=== PATIENT | female | born 1955 | race Caucasian/White ===

== ENCOUNTER 2023-01-07 15:30 | Outpatient (RCR) | payer MEDICARE, SELFPAY ==
--- NOTE | 2022-12-12 17:17 | PTOPEVAL1 ---
Assessment and note entered by Isabelle King, PT Evaluation Information Assessment Status Evaluation Diagnosis low back pain unspec., oth s/s involving musculoskeletal system Subjective Information Reports left buttock cheek is the pain. Was provided steroids, steroid, and had x-rays. Radiologist thinks L5-S1 slipped disc might be cause of pain. Fell on 11/16/22, was trying to push a wave runner off a port and stepped into hole. Pain improved from steroid shot, the next day with the pack was back but from that point on has gotten better every day. Works out 2x weekly with exercise classes, does a circuit and does exercises as directed. Uses body weight, some weights but not heavy weight. Did this because felt like she was loosing her balance and felt much stronger since started 9 months ago . Pain: C: 1/10 Best 0/10, worst in last two weeks 5 -6/10 Aggravating factors: pain with sitting on sore area, feels a ?pull like a stretch?. Worst is lifting left leg at night to pull off sock. Bending from the waist pulls and is a ?twinge?. Sitting in the car is the ?absolute worst?. In the beginning had pain down the leg but hasn?t had pain in the leg in more than a week. Reported Pain Level Pain Score 1: Self Report Assessment PT Clinical Summary Pt presents with complaints of left gluteal pain after fall early last month. States pain initially was very bad but has been getting progressively better. Pt has not been able to go work out and do her normal activities secondary to pain and for fear of increasing pain again. Today pt demo?s right iliac elevated in standing and left shoulder elevated, prominent sacral border with tenderness to piriformis insertion as well, mild deficits in gluteal medius strength, moderate strength deficits bilat glutes. Pt was educated on pelvic anatomy, therapy findings, prognosis, and provided initial home exercise program. Pt will benefit from physical therapy to continue progression of pain, improve deficits, and return to high level activities without pain Plan of Care Interventions
--- NOTE | 2022-12-12 17:17 | OPREHPOC ---
Outpatient Therapy Plan of Care This is a Multidisciplinary Plan of Care that may contain components documented by all disciplines (PT, OT, and ST.) PT Problem 1 PT Problem #1 Knowledge Deficit PT Goal 1 Goal Pt will verbalize understanding of diagnosis and prognosis Target Visit 8 PT Goal 2 Goal Pt will be independent in HEP Target Visit 8 PT Problem 2 PT Problem #2 Pain PT Goal 1 Goal Pt will report highest level of pain with exercise class at 2/10 Target Visit 4 PT Goal 2 Goal Pt will report resolution of pain with all activities Target Visit 8 PT Problem 3 PT Problem #3 Impaired Strength PT Goal 1 Goal Pt will demo 4/5 glute max strength bilat Target Visit 8 PT Goal 1 Goal Pt will demo equal pelvic alignment 3 sessions in a row Target Visit 8
--- NOTE | 2023-01-07 16:03 | PTOPDC ---
Assessment and note entered by Isabelle King, PT Assessment Status Discharge Diagnosis low back pain unspec., oth s/s involving msuculoskeletal system Subjective Information was horrible pain did the hardest workout had ever done and then came to therapy. Reports was definitely muscle soreness . Took tylenol, iced, and rested. Currently had a work out, one thing that irritates buttock more than anything is side stepping to left with large steps, reports is a muscle burn sensation. Subsides pretty quickly. Self percieved improvement: 98-99% improvement, if hadn't had the soreness would have rated 100%. No longer limited with sitting in the car. Has returned to fitness regiment without issue Reported Pain Level Pain Score 1: Self Report Assessment PT Clinical Summary Pt attended therapy consistently for her pain. She reports 98-99% improvement overall, has met her goals, met all accept one partially met therapist goal, and her highest pain level recently she reports was muscle soreness and not related to the pain that brought her to therapy. Pt has been educated on her final home exercise program and to contact therapist if she has any further needs. Thus patient is being discharged from therapy services due to completion of plan of care.
== END 2023-01-07 16:09 | disposition home or self-care (01) ==
LOC: ANHHIPT 15:30
PROVIDERS: PCP Physician Assistant Medical; Visit Provider Physician Assistant Medical
DX: M54.50 Low back pain, unspecified (principal); R29.898 Other symptoms and signs involving the musculoskeletal system
CPT/HCPCS: 97110; 97140; 97161

== ENCOUNTER 2023-05-16 10:03 | Outpatient (CLI) | payer MEDICARE, SELFPAY ==
--- NOTE | ~2023-05-16 | CT_ITS ---
CT of the Abdomen and Pelvis: Indication: Abdominal pain Technique: 2.5 mm axial scans were obtained through the abdomen and pelvis following intravenous adm inistration of 100 cc of Omnipaque 350. Dose reduction technique was used on this scan by utilizing a utomated exposure control and iterative reconstruction technique. The dose-length product (DLP) was 6 16.09 mGy-cm. Findings: Scans through the lung bases no straight 9 mm mildly irregular right middle lobe pulmonary nodule, new since 01/26/2018. The liver, spleen, pancreas, adrenals and kidneys are within normal limits. Cholecystectomy clips are present. There is mild fullness of the right ureter, nonspecific. No stones seen. There are atherosc lerotic calcifications of the aorta. No lymphadenopathy. No bowel obstruction or bowel wall thickening. There is no evidence to suggest acute appendicitis. Images through the pelvis were performed. Urinary bladder unremarkable. No pelvic mass seen. No ascit es. Impression: 9 mm right middle lobe pulmonary nodule, as detailed above, not seen on prior exam. According to Flei schner Society criteria, consider 3 month follow-up CT, PET/CT, or attempted tissue sampling. Minimal fullness of the right ureter, of uncertain clinical significance/etiology. Reviewed, dictated and finalized at location M. LTS ENGINEER Impression: 9 mm right middle lobe pulmonary nodule, as detailed above, not seen on prior e xam. According to Fleischner Society criteria, consider 3 month follow-up CT, P ET/CT, or attempted tissue sampling. Minimal fullness of the right ureter, of uncertain clinical significance/etiolo gy.
[2023-05-16 10:21] LABS: Estimated Glomerular Filt Rate > 60
== END 2023-05-16 10:04 | disposition home or self-care (01) ==
PROVIDERS: PCP Physician Assistant Medical; Visit Provider Nurse Practitioner
DX: R10.9 Unspecified abdominal pain (principal); R91.1 Solitary pulmonary nodule
CPT/HCPCS: 74177; Q9967

== ENCOUNTER 2023-07-11 12:42 | Outpatient (CLI) | payer MEDICARE, SELFPAY ==
--- NOTE | ~2023-07-11 | CT_ITS ---
Clinical Indication: Lung nodule CT Scan of the Chest with Contrast: Technique: Contiguous sections were acquired throughout the chest after intravenous administration of 35 cc of Omnipaque 350. Dose reduction technique was used on this scan by utilizing automated exposu re control and iterative reconstruction technique. The dose-length product (DLP) was 311.70 mGy-cm. COMPARISON: 05/16/2023, 01/26/2018 Findings: There is no evidence of any significant mediastinal, hilar or axillary lymphadenopathy. There is no f illing defect in the pulmonary arterial tree to suggest pulmonary embolus. There is no evidence of ao rtic dissection or aneurysm. There is no evidence of pleural or pericardial effusion. There is focal area somewhat tree-in-bud nodularity at the peripheral, inferior right upper lobe. Eulogio cified upper lobe granuloma. There is focal nodularity the right middle lobe, unchanged from prior ex am. Stable small pleural-based nodule at the right lower lobe. Images through the upper abdomen reveal no abnormalities. Impression: Subtle tree-in-bud nodularity focally at the peripheral inferior right upper lobe, suggestive of smal l areas infectious process. Stable nodularity right middle lobe, which could reflect chronic smokers infectious process and/or po stoperative scarring. Stable small pleural-based nodule right lower lobe. Reviewed, dictated and finalized at location M. ICAL OB Impression: Subtle tree-in-bud nodularity focally at the peripheral inferior right upper lo be, suggestive of small areas infectious process. Stable nodularity right middle lobe, which could reflect chronic smokers infect ious process and/or postoperative scarring. Stable small pleural-based nodule right lower lobe.
[2023-07-11 13:14] LABS: Estimated Glomerular Filt Rate 55
== END 2023-07-11 12:43 | disposition home or self-care (01) ==
PROVIDERS: PCP Physician Assistant Medical
DX: R91.1 Solitary pulmonary nodule (principal); R91.8 Other nonspecific abnormal finding of lung field
CPT/HCPCS: 71260; Q9967

== ENCOUNTER 2023-08-13 00:25 | Day surgery (SDC) | payer MEDICARE, SELFPAY ==
[2023-05-19 14:55] VITALS: BMI 29.9
--- NOTE | 2023-06-05 14:05 | PC.NURSE ---
Spoke with patient regarding rescheduled procedure. Updated patient with new dates and times. Patient denies any changes to health history, medications, or allergies. No questions at this time.
[2023-08-01 10:37] VITALS: BMI 29.9
--- NOTE | 2023-08-11 11:27 | SUR.PREOP ---
Patient called regarding upcoming procedure. Reviewed preop instructions, new appointment times, and procedure prep.
--- NOTE | 2023-08-12 14:31 | PM.HPGS ---
History of Present Illness History of Present Illness Consent: Risks, benefits, and alternatives have been discussed and questions answered. Patient agrees to proceed with procedure. Chief complaint: neoplasm screening,epigastric pain, Dorsalgia,GERD Narrative: Lilia Roa is a 68 year old female Who is undergoing investigation of epigastric pressure that she She had last January. Was very intense lasted a day or 2. Along with that she had pain in her upper back and neck. Ever since then, she has had pain in the back of her neck. She recently saw a neurosurgeon who suggested that she have endoscopy and or barium swallow. She denies dysphagia. She has not had any sensation of food going down the wrong throat. When this began last fall it was initially a very severe pain across her upper abdomen. She is also due for colon cancer screening. It has been at least 10 years since her last colonoscopy. Review of Systems Review of Systems: All systems reviewed & are unremarkable except as noted in HPI and below PMFSH Past Medical History Medical History Anxiety BMI 30.0-30.9,adult Claustrophobia Epigastric pressure GERD (gastroesophageal reflux disease) GERD without esophagitis Hypertension Hypothyroidism, unspecified IBS (irritable bowel syndrome) Mallet finger of right hand Mid back pain Nonrheumatic mitral (valve) prolapse Nonrheumatic mitral valve regurgitation GENESIS (obstructive sleep apnea) Osteoarthritis Screening for colon cancer Thyroid nodule Wears glasses Weight gain Surgical History Surgical History H/O partial thyroidectomy History of cholecystectomy Hx of hysterectomy S/P SALEEM-BSO Family History Family History Sibling Patient's sister is in good health Patient's brother is in good health Family history of sleep apnea Mother Family history of Parkinson's disease, Onset Age: 88 Father Malignant neoplasm of prostate Patient's father is , Onset Age: 83 MDS (myelodysplastic syndrome) Grandparent Family history of malignant neoplasm Other Diabetes mellitus Family history of arthritis Family history of blood dyscrasia Family history of coronary artery disease Family history of mental disorder Family history of type 1 diabetes mellitus Hypertension Social History Social History Smoking packs per day: 1 Smoking cigarettes per day: 20.0 Years smoked: 35 Smoking pack-years: 35.00 Smoking status: Former smoker Tobacco type: cigarettes Second hand tobacco smoke exposure: Yes Smoking end date: 06/30/02 Alcohol intake: never Substance use: never Substance use type: does not use Lack of Transportation: No Lack of Food: Never True Current Housing: I Have Housing Concerned About Future Housing: No Difficulty Paying Gas/Electric Bills: No Difficulty Paying for Meds: No Currently Unemployed: No Education: Associate Degree Difficulty w/ Childcare or Family Care: No Living arrangements: with family Occupation/Education: retired 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
[2023-08-13 11:40] VITALS: BP 130/86; PULSE 80; RESP 16; TEMP 36.3; O2SAT 100
[2023-08-13] MEDS: LACTATED RINGERS 1,000 ML 150 ML IV CONT (11:48)
--- NOTE | 2023-08-13 11:59 | WPDANESEPPF ---
Anes - Initial Pre Proc Eval Procedure: Operation Date: 08/13/23 12:30 Proposed Procedures p Esophagogastroduodenoscopy & Colonoscopy - Reynaldo Fox MD Date/Time: 08/13/23 11:59 Surgeon: Reynaldo Fox MD Pre Op Diagnosis: neoplasm screening,epigastric pain, Dorsalgia,GERD Patient Data Age: 68 Gender: F Height: 1.63 m Weight: 77.7 kg Last Vital Signs Temp 97.4 F L 08/13/23 11:40 Pulse 80 08/13/23 11:40 Resp 16 08/13/23 11:40 BP 130/86 08/13/23 11:40 Pulse Ox 100 08/13/23 11:40 O2 Del Method Room Air 08/13/23 11:40 Allergies Allergy/AdvReac Type Severity Reaction Status Date / Time LA NENA Inhibitors Allergy Unknown Unknown Verified 08/13/23 11:37 Beta-Blockers Allergy Unknown Unknown Verified 08/13/23 11:37 (Beta-Adrenergic Bloc moxifloxacin Allergy Unknown Unknown Verified 08/13/23 11:37 Latex, Natural Rubber Allergy Swelling Verified 08/13/23 11:37 azithromycin AdvReac Unknown diarrhea Verified 08/13/23 11:37 [From Zithromax Z-Lyle] bactrim AdvReac Nausea Uncoded 08/13/23 11:37 Home Medications Medication Instructions Recorded Confirmed Type triamcinolone acetonide 0.1 % 1 applic topical BID #30 grams 02/13/21 08/13/23 Rx topical cream loperamide 2 mg tablet (Imodium 2 mg PO BID PRN Diarrhea 07/31/21 08/13/23 History A-D) buspirone 15 mg tablet See Rx Instructions .Route 02/21/23 08/13/23 Rx .COMPLEX #90 tabs liothyronine 5 mcg tablet See Rx Instructions .Route 03/31/23 08/13/23 Rx .COMPLEX #180 tabs dexlansoprazole 60 mg 60 mg PO DAILY #30 caps 05/07/23 08/13/23 Rx capsule,biphase delayed release (Dexilant) sucralfate 100 mg/mL oral 1 g (10 mL) PO ACHS #400 mL 05/07/23 08/13/23 Rx suspension (Carafate) rabeprazole 20 mg tablet,delayed See Rx Instructions .Route 06/24/23 08/13/23 Rx release .COMPLEX #180 tabs meloxicam 7.5 mg tablet See Rx Instructions .Route 07/07/23 08/13/23 Rx .COMPLEX #60 tabs clonidine HCl 0.1 mg tablet See Rx Instructions .Route 07/14/23 08/13/23 Rx .COMPLEX #270 tabs alprazolam 0.25 mg tablet (Xanax) 0.25 mg PO BID PRN anxiety #60 tabs 07/22/23 08/13/23 Rx levothyroxine 75 mcg tablet 75 mcg PO DAILY #90 tabs 07/23/23 08/13/23 Rx (Synthroid) Patient hx anesthesia problems: none Family hx anesthesia problems: none Results Review: All pre-operative results and documents have been reviewed as part of the pre-operative evaluation. [facility] Past Medical History Medical History Anxiety BMI 30.0-30.9,adult Claustrophobia Epigastric pressure GERD (gastroesophageal reflux disease) GERD without esophagitis Hypertension Hypothyroidism, unspecified IBS (irritable bowel syndrome) Mallet finger of right hand Mid back pain Nonrheumatic mitral (valve) prolapse Nonrheumatic mitral valve regurgitation GENESIS (obstructive sleep apnea) Osteoarthritis Screening for colon cancer Thyroid nodule Wears glasses Weight gain Surgical History Surgical History H/O partial thyroidectomy History of cholecystectomy Hx of hysterectomy S/P SALEEM-BSO Family History Family History Sibling Patient's sister is in good health Patient's brother is in good health Family history of sleep apnea Mother Family history of Parkinson's disease, Onset Age: 88 Father Malignant neoplasm of prostate Patient's father is , Onset Age: 83 MDS (myelodysplastic syndrome) Grandparent Family history of malignant neoplasm Other Diabetes mellitus Family history of arthritis Family history of blood dyscrasia Family history of coronary artery disease Family history of mental disorder Family history of type 1 diabetes mellitus Hypertension Social History Social History Smoking pa
[2023-08-13] MEDS: SIMETHICONE ORAL SUSPENSION 20 MG/0.3 ML 30 ML BOTTLE 0.6 ML IRRIGATION (12:53)
[2023-08-13 13:06] VITALS: BP 139/88; PULSE 73; RESP 16; O2SAT 100
--- NOTE | 2023-08-13 13:06 | SUR.OPER ---
EGD START 1239, END 1241 COLONOSCOPY START 1247, END 1303
[2023-08-13 13:16] VITALS: BP 146/89; PULSE 65; RESP 12; O2SAT 100
[2023-08-13 13:26] VITALS: BP 143/88; PULSE 62; RESP 12; O2SAT 100
== END 2023-08-13 13:36 | disposition home or self-care (01) ==
PROVIDERS: PCP Physician Assistant Medical; Visit Provider Internal Medicine Gastroenterology
PROC: 0DJ08ZZ Inspection of Upper Intestinal Tract, Via Natural or Artificial Opening Endoscopic (ICD-10-PCS; CPT 43235; principal; 2023-08-13 12:30)
DX: Z12.11 Encounter for screening for malignant neoplasm of colon (principal); D12.4 Benign neoplasm of descending colon; D12.3 Benign neoplasm of transverse colon; K21.9 Gastro-esophageal reflux disease without esophagitis; K31.7 Polyp of stomach and duodenum; I10 Essential (primary) hypertension; E89.0 Postprocedural hypothyroidism; G47.33 Obstructive sleep apnea (adult) (pediatric); F41.9 Anxiety disorder, unspecified; Z87.891 Personal history of nicotine dependence; E66.9 Obesity, unspecified; Z68.29 Body mass index [BMI] 29.0-29.9, adult
CPT/HCPCS: 45385; 43235; 88305; J2704; J7120

== ENCOUNTER 2023-09-09 16:50 | Inpatient (IN) | payer MEDICARE, SELFPAY ==
[2023-09-09] VITALS (17 sets, daily range): BP systolic 124–183; BP diastolic 68–110; PULSE 60–84; RESP 13–22; TEMP 36.2–36.7; O2SAT 98–100; BMI 29.5
--- NOTE | ~2023-09-09 | US_ITS ---
EXAMINATION: US venous doppler [facility] DATE: 09/11/2023 16:58 INDICATION: Acute pulmonary emboli. TECHNIQUE: Grayscale ultrasound images without and with compression and Doppler ultrasound images of the bilateral lower extremity veins were obtained. COMPARISON: None. FINDINGS: The visualized portions of right common femoral vein, profunda (deep) femoral vein, femoral vein, pop liteal vein, peroneal veins, posterior tibial veins, and greater saphenous vein outflow are patent. The visualized portions of left common femoral vein, profunda femoral vein, femoral vein, popliteal v ein, peroneal veins, posterior tibial veins, and greater saphenous vein outflow are patent. IMPRESSION: 1. No deep venous thrombosis. Reviewed, dictated and finalized at location A.
--- NOTE | ~2023-09-09 | CT_ITS ---
EXAMINATION: CTA chest PE protocol DATE: 09/09/2023 17:21 INDICATION: + dimer on OP labs yesterday TECHNIQUE: Computed tomography angiography (CTA) of the chest was performed with 100 mL Omnipaque-350 intravenous contrast timed to evaluate the pulmonary arteries. Coronal maximum intensity projection 3D-reconstructions were created by the technologist. The dose-length product (DLP) was 399.54 mGy-cm. Automated exposure control and iterative reconstruction technique were employed. COMPARISON: 07/11/2023. FINDINGS: Lung parenchyma and airways: Slightly increased focal areas of tree-in-bud opacities in the right upp er and right middle lobes. Stable pleural-based right lower lobe nodule. Patent airways. Pleura: Unremarkable. Thoracic inlet, axillae and chest wall: Unremarkable. Thoracic aorta: No significant dilation. No dissection. Mild arch calcification. Mediastinum: Normal. Heart and pericardium: No cardiomegaly or effusion. RV/LV ratio 1.1. Coronary artery calcifications: Absent. Upper abdomen: No significant finding. Bones: No acute osseous finding. Pulmonary arteries: Study quality: Adequate. Multiple segmental nonocclusive acute emboli in the ling jimi and bilateral lower lobes. IMPRESSION: Multiple segmental nonocclusive acute emboli in the lingula and bilateral lower lobes. Moderate clot burden. Evidence of right heart strain. Right upper lobe and right middle lobe tree-in-bud opacities as can be seen with atypical infection ( MAC, TB, fungal), ABPA, airways disease (CF, bronchiectasis), and aspiration.. Reviewed, dictated and finalized at location K. IMPRESSION: Multiple segmental nonocclusive acute emboli in the lingula and bilateral lower lobes. Moderate clot burden. Evidence of right heart strain. Right upper lobe and right middle lobe tree-in-bud opacities as can be seen wit h atypical infection (MAC, TB, fungal), ABPA, airways disease (CF, bronchiectas is), and aspiration..
--- NOTE | 2023-09-09 16:54 | ECG_ITS ---
Measurements Intervals [place] Rate: 60 P: 26 W[place]: 162 QRS: -21 QRSD: 89 T: 24 QT: 424 QTc: 424 Interpretive Statements SINUS RHYTHM VENTRICULAR PREMATURE COMPLEXES EARLY PRECORDIAL R/S TRANSITION BORDERLINE ECG NO PREVIOUS ECG AVAILABLE FOR COMPARISON Electronically Signed On 09-10-2023 10:04:23 CDT by Ulysses Sung D.O.
[2023-09-09 17:12] LABS: Estimated CRCL calculation 47 ml/min; Estimated Glomerular Filt Rate 55
--- NOTE | 2023-09-09 17:43 | ED.GENADULT ---
HPI - General Adult General Chief complaint: Recheck/Abnormal Lab/Rx <Uriah Briggs PA-C - Last Filed: 09/10/23 00:56> Stated complaint: abnormal labs <TEDDY Butler Last Filed: 09/10/23 00:56> Time Seen by Provider: 09/09/23 17:01 <Uriah Briggs PA-C - Last Filed: 09/10/23 00:56> Source: patient <TEDDY Butler Last Filed: 09/10/23 00:56> Mode of arrival: ambulatory <TEDDY Butler Last Filed: 09/10/23 00:56> Limitations: no limitations <TEDDY Butler Last Filed: 09/10/23 00:56> History of Present Illness HPI narrative: This is a 68-year-old female who presents to the ED with chief complaint of intermittent shortness of breath for the past several weeks. She reports that she will have episodes of dyspnea on exertion. Reports that she has had trouble with walking across the mid times the she tries to work out regularly but has been a to even walk slowly at the gym lately without getting short of breath. Denies chest pain. Denies syncope, diaphoresis, vomiting, leg swelling. Denies history of blood clot, recent travel or immobilization. She was seen at PCP office today who started in outpatient workup including D-dimer which was elevated to 1.94. She is here for a CTA of the chest. <Uriah Briggs PA-C - Last Filed: 09/10/23 00:56> Related Data Home medications: Home Medications Medication Instructions Recorded Confirmed loperamide 2 mg tablet (Imodium 2 mg PO BID PRN Diarrhea 07/31/21 09/09/23 A-D) buspirone 15 mg tablet 7.5 mg PO BID 09/08/23 09/09/23 clonidine HCl 0.1 mg tablet 0.05 mg PO TID 09/08/23 09/09/23 liothyronine 5 mcg tablet 5 mcg PO BID 09/08/23 09/09/23 meloxicam 7.5 mg tablet 7.5 mg PO BID PRN pain 09/08/23 09/09/23 rabeprazole 20 mg tablet,delayed 20 mg PO BID 09/08/23 09/09/23 release alprazolam 0.25 mg tablet (Xanax) 0.25 mg PO BID anxiety 09/09/23 09/09/23 cetirizine 10 mg tablet (Zyrtec) 10 mg PO DAILY 09/09/23 09/09/23 levothyroxine 75 mcg tablet 88 mcg PO DAILY 09/09/23 09/09/23 (Synthroid) <Uriah Briggs PA-C - Last Filed: 09/10/23 00:56> Allergies/adverse reactions: Allergies Allergy/AdvReac Type Severity Reaction Status Date / Time LA NENA Inhibitors Allergy Unknown Unknown Verified 09/09/23 16:52 Beta-Blockers Allergy Unknown Unknown Verified 09/09/23 16:52 (Beta-Adrenergic Bloc moxifloxacin Allergy Unknown Unknown Verified 09/09/23 16:52 Latex, Natural Rubber Allergy Swelling Verified 09/09/23 16:52 azithromycin AdvReac Unknown diarrhea Verified 09/09/23 16:52 [From Zithromax Z-Lyle] bactrim AdvReac Mild Nausea Uncoded 09/09/23 16:53 <Uriah Briggs PA-C - Last Filed: 09/10/23 00:56> Review of Systems Review of Systems: All systems as dictated in HPI <Uriah Briggs PA-C - Last Filed: 09/10/23 00:56> [facility] Past Medical History Medical History: Medical History Anxiety BMI 30.0-30.9,adult Claustrophobia Epigastric pressure GERD (gastroesophageal reflux disease) GERD without esophagitis Hypertension Hypothyroidism, unspecified IBS (irritable bowel syndrome) Mallet finger of right hand Mid back pain Nonrheumatic mitral (valve) prolapse Nonrheumatic mitral valve regurgitation GENESIS (obstructive sleep apnea) Osteoarthritis Screening for colon cancer Thyroid nodule Wears glasses Weight gain <Uriah Briggs PA-C - Last Filed: 09/10/23 00:56> Surgical History Surgical History: Surgical History H/O partial thyroidectomy History of cholecystectomy Hx of hysterectomy S/P SALEEM-BSO <Uriah Briggs PA-C - Last Filed: 09/10/23 00:56> Family History Family History: Family History Sibling Patient's sister is in good health Patient's brother is in good health Family history of sleep apnea Mother Fam
[2023-09-09] MEDS: HEPARIN SODIUM 5,000 UNITS/ML VIAL 5000 UNITS IV PUSH (18:00)
[2023-09-09] MEDS: HEPARIN SOD/D5W 100 UNITS/ML 25,000 UNITS/250 ML BAG 12 UNITS IV CONT (18:02)
[2023-09-09 18:06] LABS: NT Pro B Type Natriuretic Pept 86 pg/mL (19.9-100)
[2023-09-09 18:08] LABS: Basophils Percent Auto 0.5 % (0.2-1.2); Eosinophils Absolute Auto 0.2 K/mm3 (0-0.3); Hematocrit 37.6 % (37.0-47.0); Hemoglobin 12.3 g/dL (12.0-15.0); Immature Granulocyte Absolute 0.01 K/mm3 (0.00-0.031); Immature Granulocyte Percent A 0.2 % (0-0.5); Lymphocytes Absolute Auto 1.58 K/mm3 (0.9-3.2); Lymphocytes Percent Auto 27.1 % (18.3-44.2); Mean Corpuscular HGB Conc 32.7 g/dl (32-36); Mean Corpuscular Volume 94.7 fl (80-100); Mean Platelet Volume 12.2 fl (7.4-10.4); Monocytes Absolute Auto 0.8 K/mm3 (0.1-0.6); Monocytes Percent Auto 13.9 % (2.6-8.5); Neutrophils Absolute Auto 3.2 K/mm3 (1.3-6.7); Neutrophils Percent Auto 54.3 % (45.5-73.1); Platelet Count Result 281 k/mm3 (150-375); Red Blood Count 3.97 M/mm3 (4.2-5.4); Red Cell Distribution Width 12.3 % (11.5-14.5); White Blood Count 5.8 K/mm3 (4.5-10.0)
[2023-09-09 19:10] LABS: Partial Thromboplastin Time 28.8 Seconds (22.3-36.8)
[2023-09-09 19:26] LABS: Alanine Aminotransferase 16 U/L (6-35); Albumin Level 4.1 g/dL (3.5-5.1); Alkaline Phosphatase 76 U/L (38-126); Anion Gap 6 mmol/L (8-16); Aspartate Amino Transferase 24 U/L (14-36); Bilirubin,Total 0.5 mg/dL (0.2-1.3); Blood Urea Nitrogen 23 mg/dL (7-17); Calcium 9.2 mg/dL (8.4-10.2); Carbon Dioxide 26 mmol/L (22-30); Chloride 101 mmol/L (98-107); Estimated CRCL calculation 58 ml/min; Estimated Glomerular Filt Rate > 60; Glucose 93 mg/dL (65-110); Potassium 4.3 mmol/L (3.4-5.0); Sodium 133 mmol/L (137-145)
[2023-09-09 19:38] LABS: Troponin I < 0.012 ng/mL (0.000-0.034)
--- NOTE | 2023-09-09 20:58 | PM.IMHP ---
H&P: HPI History of Present Illness Date/Time: 09/09/23 20:58 Chief Complaint: Shortness of breath. This is a 68-year-old female patient with a past medical history of hypothyroidism GERD who came to the emergency room because of the abnormal labs. Patient is having shortness of breath for about 2 months of unknown. She went to see her primary care physician and dimer was ordered that was elevated she was sent to to get his CT angiogram chest. Patient is awake alert not in acute distress. Denies any fever chills dizziness lightheadedness no blurred vision complains of shortness of breath denies any cough denies any chest pain denies any nausea no vomiting no diarrhea no dysuria no muscle and joint pains. Vital signs in the emergency room was stable. Cbc was mainly in range. CMP was significant for sodium 133 BUN 23. Troponin was normal. CT of chest showed multiple cysts segmental nonocclusive acute emboli in the lingula and bilateral lower lobes. Moderate clot burden. Evidence of right heart strain. Patient started on IV heparin drip. Review of Systems Review of Systems: A 10 point review of system is done and is only positive what is dictated in the history of present illness. [facility] Past Medical History Medical History Anxiety BMI 30.0-30.9,adult Claustrophobia Epigastric pressure GERD (gastroesophageal reflux disease) GERD without esophagitis Hypertension Hypothyroidism, unspecified IBS (irritable bowel syndrome) Mallet finger of right hand Mid back pain Nonrheumatic mitral (valve) prolapse Nonrheumatic mitral valve regurgitation GENESIS (obstructive sleep apnea) Osteoarthritis Screening for colon cancer Thyroid nodule Wears glasses Weight gain Surgical History Surgical History H/O partial thyroidectomy History of cholecystectomy Hx of hysterectomy S/P SALEEM-BSO Family History Family History Sibling Patient's sister is in good health Patient's brother is in good health Family history of sleep apnea Mother Family history of Parkinson's disease, Onset Age: 88 Father Malignant neoplasm of prostate Patient's father is , Onset Age: 83 MDS (myelodysplastic syndrome) Grandparent Family history of malignant neoplasm Other Diabetes mellitus Family history of arthritis Family history of blood dyscrasia Family history of coronary artery disease Family history of mental disorder Family history of type 1 diabetes mellitus Hypertension Social History Social History Smoking packs per day: 1 Smoking cigarettes per day: 20.0 Years smoked: 35 Smoking pack-years: 35.00 Smoking status: Former smoker Tobacco type: cigarettes Second hand tobacco smoke exposure: Yes Smoking end date: 06/30/02 Alcohol intake: never Substance use: never Substance use type: does not use Lack of Transportation: No Lack of Food: Never True Current Housing: I Have Housing Concerned About Future Housing: No Difficulty Paying Gas/Electric Bills: No Difficulty Paying for Meds: No Currently Unemployed: No Education: Associate Degree Difficulty w/ Childcare or Family Care: No Living arrangements: with family Occupation/Education: retired 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
--- NOTE | 2023-09-09 21:43 | ADMGEN ---
This patient, Lilia Roa, was admitted to IMU Room 211-01. Patient/family oriented to hospital policies and general routines including ID bracelet, bed and alarms, visiting hours, pain management, procedures, bathroom and other care routines, personal items, smoking policy, room service/diet, and visiting hours. Information on how to activate the Rapid Response Team has been discussed. Patient/Family are encouraged to report perceived risks to care and to ask questions if they do not understand what they are told or what they should do.
[2023-09-09 22:19] LABS: Troponin I < 0.012 ng/mL (0.000-0.034)
[2023-09-09] MEDS: cloNIDine HCL 0.05 MG TABLET PO (22:38)
[2023-09-09] MEDS: busPIRone HCL 2.5 MG, busPIRone HCL 5 MG 7.5 MG PO (22:38)
[2023-09-09] MEDS: MELOXICAM 7.5 MG TABLET PO (22:42)
[2023-09-10] VITALS (17 sets, daily range): BP systolic 117–157; BP diastolic 74–90; PULSE 60–80; RESP 18–19; TEMP 36.1–36.9; O2SAT 95–98
--- NOTE | 2023-09-10 | ECHO_ITS ---
Patient Info Name: Lilia Roa Age: 68 years : 1955 Gender: Female Ht: 64 in Wt: 171 lbs BSA: 1.90 m2 HR: 68 bpm BP: 132 / 83 mmHg Heart Rhythm: Sinus Rhythm Technical Quality: Fair Exam Date: 09/10/2023 1:17 PM Exam Location: Echo Lab Exam Room: [facility] Patient Status: Inpatient Admit Date: 09/10/2023 Staff Ordering Physician: Kayode Adame MD Intermediate Frame Tender: Adriana Mcfarland RDCS Attending Provider: Kayode Adame MD Exam Type: CA echo doppler color flow Study Info Indications - RIGHT HAERT STRAIN ON CT STRAIN C/O SOB Complete two-dimensional, color flow and Doppler transthoracic echocardiogram is performed. Summary 1. Complete two-dimensional, color flow and Doppler transthoracic echocardiogram is performed. 2. Left ventricular chamber dimension is normal. 3. Left ventricular systolic function is normal, estimated at 65-70%. 4. There is mildly increased left ventricular wall thickness. 5. The left ventricular diastolic function is grade I diastolic dysfunction. 6. Right ventricular systolic function is normal. 7. There is mild aortic valve regurgitation. 8. There is moderate mitral valve regurgitation. 9. There is mild tricuspid valve regurgitation. Left Ventricle Left ventricular chamber dimension is normal. Left ventricular systolic function is normal, estimated at 65-70%. There is mildly increased left ventricular wall thickness. The left ventricular diastolic function is grade I diastolic dysfunction. Right Ventricle Right ventricular chamber dimension is normal. Right ventricular systolic function is normal. Left Atria Left atrial chamber dimension is normal. Right Atria Right atrial chamber dimension is normal. Atrial Septum Intact interatrial septum visualized by color flow imaging. Aortic Valve The aortic valve is trileaflet. There is no aortic valve stenosis. There is mild aortic valve regurgitation. Pulmonic Valve The pulmonic valve is not well visualized. There is trace pulmonic regurgitation. Mitral Valve There is moderate mitral valve regurgitation. Tricuspid Valve There is mild tricuspid valve regurgitation. Pericardium/Pleural There is no pericardial effusion. Inferior Vena Cava Normal inferior vena cava with >50% collapse upon inspiration consistent with normal right atrial pressure, 3 mmHg. Aorta The aortic root size at the sinus of Valsalva is normal. Left Ventricular Outflow Tract Name Value Normal LVOT 2D LVOT Diameter 2.0 cm LVOT Doppler LVOT Peak Gradient 4 mmHg LVOT Mean Gradient 2 mmHg LVOT VTI 20 cm LVOT VTI/AV VTI Ratio 0.9 LVOT Stroke Volume 63 ml LVOT CO 14.1 l/min LVOT CI 7.7 l/min/m2 Pulmonic Valve Name Value Normal RVOT Doppler RVOT Peak Gradient
[2023-09-10 01:00] LABS: Partial Thromboplastin Time 123.6 Seconds (22.3-36.8)
[2023-09-10 04:57] LABS: Basophils Percent Auto 0.8 % (0.2-1.2); Eosinophils Absolute Auto 0.2 K/mm3 (0-0.3); Eosinophils Percent Auto 2.9 % (0-4.4); Hematocrit 37.9 % (37.0-47.0); Hemoglobin 12.7 g/dL (12.0-15.0); Lymphocytes Absolute Auto 1.46 K/mm3 (0.9-3.2); Lymphocytes Percent Auto 28.1 % (18.3-44.2); Mean Corpuscular HGB Conc 33.5 g/dl (32-36); Mean Corpuscular Hemoglobin 31.1 pg (26-34); Mean Corpuscular Volume 92.9 fl (80-100); Mean Platelet Volume 11.6 fl (7.4-10.4); Monocytes Absolute Auto 0.7 K/mm3 (0.1-0.6); Monocytes Percent Auto 12.5 % (2.6-8.5); Neutrophils Absolute Auto 2.9 K/mm3 (1.3-6.7); Neutrophils Percent Auto 55.7 % (45.5-73.1); Platelet Count Result 250 k/mm3 (150-375); Red Blood Count 4.08 M/mm3 (4.2-5.4); Red Cell Distribution Width 12.3 % (11.5-14.5); White Blood Count 5.2 K/mm3 (4.5-10.0)
[2023-09-10] MEDS: LEVOTHYROXINE SODIUM 88 MCG TABLET PO (05:53)
[2023-09-10 08:49] LABS: Partial Thromboplastin Time 106.9 Seconds (22.3-36.8); Troponin I < 0.012 ng/mL (0.000-0.034)
[2023-09-10] MEDS: ALPRAZolam (*CRX) 0.25 MG TABLET PO ×2 (09:47→20:31)
[2023-09-10] MEDS: cloNIDine HCL 0.05 MG TABLET PO ×3 (09:47→20:26)
[2023-09-10] MEDS: PANTOPRAZOLE 40 MG TABLET PO (09:47)
[2023-09-10] MEDS: busPIRone HCL 2.5 MG TABLET 7.5 MG PO (09:47)
[2023-09-10] MEDS: LOPERAMIDE HCL 2 MG CAPSULE 4 MG PO (09:47)
[2023-09-10] MEDS: MELOXICAM 7.5 MG TABLET PO ×2 (09:47→20:31)
[2023-09-10 16:30] LABS: Partial Thromboplastin Time 112.7 Seconds (22.3-36.8)
[2023-09-10] MEDS: PANTOPRAZOLE SOD SESQUIHYDRATE 20 MG TAB PO (16:42)
[2023-09-10] MEDS: HEPARIN SOD/D5W 100 UNITS/ML 25,000 UNITS/250 ML BAG 9 UNITS IV CONT (16:43)
--- NOTE | 2023-09-10 17:33 | PM.IMPN ---
Progress Note: A&P Assessment and Plan (1) Multiple subsegmental pulmonary emboli without acute cor pulmonale: Code(s): I26.94 - Multiple subsegmental pulmonary emboli without acute cor pulmonale Status: Acute (2) Dyspnea on exertion: Onset Date: ~06/2023 Code(s): R06.09 - Other forms of dyspnea Status: Acute (3) Hypertension: Code(s): I10 - Essential (primary) hypertension Status: Acute (4) GENESIS (obstructive sleep apnea): Code(s): G47.33 - Obstructive sleep apnea (adult) (pediatric) Status: Acute (5) Anxiety: Code(s): F41.9 - Anxiety disorder, unspecified Status: Acute (6) Hypothyroidism, unspecified: Code(s): E03.9 - Hypothyroidism, unspecified Status: Acute (7) GERD without esophagitis: Code(s): K21.9 - Gastro-esophageal reflux disease without esophagitis Status: Acute (8) IBS (irritable bowel syndrome): Code(s): K58.9 - Irritable bowel syndrome without diarrhea Status: Acute (9) Osteoarthritis: Code(s): M19.90 - Unspecified osteoarthritis, unspecified site Status: Acute (10) Varicose veins of left lower extremity with other complications: Code(s): I83.892 - Varicose veins of left lower extremity with other complications Status: Acute Plan Advised patient to full inpatient status Continue with IV heparin drip Close monitoring of for IV heparin as per pharmacy protocol Patient has multiple subsegmental pulmonary emboli diagnosed during workup in the ED 2D echo ordered to evaluate for right heart strain Consider cardiology evaluation if warranted by 2D echo Bilateral lower leg venous Doppler ordered to rule out deep vein thrombosis Pulmonary consultation given for evaluation and further treatment recommendations We will switch IV heparin to oral anticoagulation once patient to patient is evaluated by Pulmonary and is more stable clinically and symptomatically ? Patient seen and examined at bedside during my morning rounds ? Collaborated with patient's nurse at the bedside in detail and addressed all concerns ? Labs, electrolytes, radiology, investigations and test results reviewed ? Consult/Nursing/Ancilliary notes on the chart reviewed and appreciated ? Spoke with patient/family at the bedside and answered all the questions that they had Repeat labs in a.m. Electrolyte replacement as per protocol. Patient will be monitored very closely on the floor. Further recommendations as per the hospital course. Time Spent With Patient Time with patient: 15 - 25 minutes Subjective Date/time seen: 09/10/23 17:33 Interval history: Patient lying in bed during my morning rounds. Her shortness of breath slowly improving. She is on IV heparin drip. Review of Systems Review of Systems: 14 systems were reviewed with pertinent positives and negatives per HPI. Except as documented in the HPI/progress notes, all other systems were reviewed and are negative. All systems reviewed & are unremarkable except as noted in HPI and below Exam Narrative: PHYSICAL EXAMINATION: Vital signs: Please see the chart General physical exam: Patient lying in bed, pleasant and cooperative with exam, appears tired and fatigue Head/eyes: Atraumatic, EOMI, PERRLA ENT: Moist mucous membranes, nasal passages clear Neck: Supple, full range of motion, trachea midline CVS: S1 + S2, regular rate and rhythm, no murmurs Respiratory: Bilaterally decreased air entry in both lung trujillo, mild B/L crackles, symmetric chest expansion, no distress Abdomen: Soft, non-tender, bowel sounds +ve, no organomegaly Extremities: No clubbing, no cyanosis, no edema, no calf tenderness Musculoskeletal: Moves all, adequate range of motion, no muscle spasms Skin: Warm, dry, no jaundice, no cyanosis Neurological: Awake, alert, oriented x 3, cranial nerves II-XII intact, no focal neurological deficits Psychiatric: Normal mood, non suicidal Ob
--- NOTE | 2023-09-10 19:14 | PM.CNPUL ---
Assessment and Plan Assessment and plan (1) Multiple subsegmental pulmonary emboli without acute cor pulmonale: Code(s): I26.94 - Multiple subsegmental pulmonary emboli without acute cor pulmonale Status: Acute Assessment and Plan: Found on CTA 09/09/23 with right heart strain. She does not have any apparent precipitating factors. She has not had any recent surgery, no history of cancer, she has not had any immobilization, no travel, airplane rides or long car rides. She is very active, works out twice a week with weight lifting and aerobic activities. There is no family history of thromboembolic disease. She has given 5 times and did not have problems with clots. She has had no hemoptysis. She has had intermittent shortness of breath worse with exertion but sometimes without exertion for 2 months. She has no alterations in vitals or saturation that are consistent with high risk PE. Her LE Doppler scheduled for tomorrow. Echo today has not been interpreted yet.however we expect to see some heart dysfunction as the CTA showed R heart strain. She is on Room Air, saturation is 97%. Plan is to transition her to oral anticoagulant based on what her insurance will cover. She does not need an IVC filter. She does not have any obvious risk for taking anticoagulants. She has fallen in the last year but both times, these were with activities outside normal daily living. Once was with a wave board runner the [employer], trying to steady herself and her foot slipped. The other was walking down stairs in the dark holding her dog. plan Will plan to convert IV heparin to direct oral anticoagulant after LE doppler reviewed. Review Echo; she had mild pulmonary hypertension in 2014, not sure the cause. She smoked until 2002, around age 48. No underlying clinical lung disease. Will need PFTS in several weeks for a new baseline. Old testing showed small airways pattern. ApneaLink tonight, on room air, off CPAP. Will see if she has a need for oxygen with sleep due to pulmonary emboli. Walk study before discharge. Determine if she needs O2 with exertion. She has been on bedrest since admission. (2) GENESIS (obstructive sleep apnea): Code(s): G47.33 - Obstructive sleep apnea (adult) (pediatric) Status: Acute Assessment and Plan: compliant with treatment, has used CPAP for several years, last office visit was December 2022, just received a new APAP, on 7 cm to 15 cm water pressure with avg pressure 10.8 cm. Does not use when sinus issues are present, increased allergies. ApneaLink on RA tonight (3) Opacity of lung on imaging study: Code(s): R91.8 - Other nonspecific abnormal finding of lung field Status: Acute Assessment and Plan: She has right upper lobe and right middle lobe tree-in-bud opacities as can be seen with atypical infection (MAC, TB, fungal), ABPA, airways disease (CF, bronchiectasis), and aspiration. These are not in the areas that the subsegmental pulmonary emboli are seen. She had a similar pattern on 07/11/[address], however no symptoms. plan: try to induce sputum for testing, using 3% NS and respiratory therapist to assist with airway clearance with Cornet valve. Test for fungal, AFB and bacterial causes. Rheumatoid factor and IgG subclasses as part of evaluation for bronchiectasis Plan Start History of Present Illness History of Present Illness Consult date: 09/10/23 Requesting physician: Kayode Adame MD Chief complaint: Pulmonary Emboli Narrative: referred by Dr Adame for PE NEW:Lilia Roa is a 68 year-old female with obstructive sleep apnea followed in our [facility], has been on CPAP for several years without difficulties. This past Friday on she developed sore throat and her
[2023-09-10] MEDS: busPIRone HCL 2.5 MG TABLET PO (20:26)
[2023-09-10] MEDS: busPIRone HCL 5 MG TABLET PO (20:26)
[2023-09-10] MEDS: LIOTHYRONINE SODIUM 5 MCG TABLET PO (21:28)
[2023-09-11] VITALS (17 sets, daily range): BP systolic 121–145; BP diastolic 72–83; PULSE 54–85; RESP 18; TEMP 36.2–36.8; O2SAT 97–100
[2023-09-11 04:51] LABS: Basophils Absolute Auto 0.1 K/mm3 (0.0-0.1); Eosinophils Absolute Auto 0.2 K/mm3 (0-0.3); Eosinophils Percent Auto 3.7 % (0-4.4); Hematocrit 38.5 % (37.0-47.0); Hemoglobin 12.3 g/dL (12.0-15.0); Immature Granulocyte Absolute 0.01 K/mm3 (0.00-0.031); Immature Granulocyte Percent A 0.2 % (0-0.5); Lymphocytes Absolute Auto 1.54 K/mm3 (0.9-3.2); Lymphocytes Percent Auto 30.1 % (18.3-44.2); Mean Corpuscular HGB Conc 31.9 g/dl (32-36); Mean Corpuscular Hemoglobin 31.1 pg (26-34); Mean Corpuscular Volume 97.2 fl (80-100); Mean Platelet Volume 10.4 fl (7.4-10.4); Monocytes Absolute Auto 0.7 K/mm3 (0.1-0.6); Monocytes Percent Auto 12.9 % (2.6-8.5); Neutrophils Absolute Auto 2.7 K/mm3 (1.3-6.7); Neutrophils Percent Auto 52.1 % (45.5-73.1); Platelet Count Result 221 k/mm3 (150-375); Red Blood Count 3.96 M/mm3 (4.2-5.4); Red Cell Distribution Width 12.4 % (11.5-14.5); White Blood Count 5.1 K/mm3 (4.5-10.0)
[2023-09-11] MEDS: SODIUM CHLOR 3% 15 ML NEB (RESPIRATORY THERAPY) 6 ML INHALATION (04:57)
[2023-09-11 05:00] LABS: Partial Thromboplastin Time 68.8 Seconds (22.3-36.8)
[2023-09-11 05:08] LABS: Anion Gap 7 mmol/L (8-16); Blood Urea Nitrogen 13 mg/dL (7-17); Calcium 8.7 mg/dL (8.4-10.2); Carbon Dioxide 21 mmol/L (22-30); Chloride 106 mmol/L (98-107); Estimated CRCL calculation 58 ml/min; Estimated Glomerular Filt Rate > 60; Glucose 97 mg/dL (65-110); Phosphorus 3.8 mg/dL (2.5-4.5); Potassium 3.9 mmol/L (3.4-5.0); Sodium 134 mmol/L (137-145)
[2023-09-11] MEDS: LEVOTHYROXINE SODIUM 88 MCG TABLET PO (05:08)
[2023-09-11] MEDS: cloNIDine HCL 0.05 MG TABLET PO ×3 (05:08→21:38)
[2023-09-11] MEDS: HEPARIN SODIUM 5,000 UNITS/ML VIAL 2500 UNITS IV PUSH (05:08)
[2023-09-11] MEDS: MELOXICAM 7.5 MG TABLET PO ×2 (08:31→21:38)
[2023-09-11] MEDS: busPIRone HCL 2.5 MG TABLET PO ×2 (08:32→21:37)
[2023-09-11] MEDS: ALPRAZolam (*CRX) 0.25 MG TABLET PO ×2 (08:33→21:38)
[2023-09-11] MEDS: LOPERAMIDE HCL 2 MG CAPSULE 4 MG PO (08:34)
[2023-09-11] MEDS: busPIRone HCL 5 MG TABLET PO ×2 (08:34→21:37)
[2023-09-11] MEDS: LIOTHYRONINE SODIUM 5 MCG TABLET PO ×2 (08:34→16:25)
[2023-09-11] MEDS: PANTOPRAZOLE SOD SESQUIHYDRATE 20 MG TAB PO ×2 (08:35→16:25)
[2023-09-11 08:55] LABS: Rheumatoid Factor < 12.0 IU/ML (<12)
[2023-09-11 11:40] LABS: Partial Thromboplastin Time 173.2 Seconds (22.3-36.8)
--- NOTE | 2023-09-11 17:39 | PM.IMPN ---
Progress Note: A&P Assessment and Plan (1) Multiple subsegmental pulmonary emboli without acute cor pulmonale: Code(s): I26.94 - Multiple subsegmental pulmonary emboli without acute cor pulmonale Status: Acute (2) Dyspnea on exertion: Onset Date: ~06/2023 Code(s): R06.09 - Other forms of dyspnea Status: Acute (3) Hypertension: Code(s): I10 - Essential (primary) hypertension Status: Acute (4) GENESIS (obstructive sleep apnea): Code(s): G47.33 - Obstructive sleep apnea (adult) (pediatric) Status: Acute (5) Anxiety: Code(s): F41.9 - Anxiety disorder, unspecified Status: Acute (6) Hypothyroidism, unspecified: Code(s): E03.9 - Hypothyroidism, unspecified Status: Acute (7) GERD without esophagitis: Code(s): K21.9 - Gastro-esophageal reflux disease without esophagitis Status: Acute (8) IBS (irritable bowel syndrome): Code(s): K58.9 - Irritable bowel syndrome without diarrhea Status: Acute (9) Osteoarthritis: Code(s): M19.90 - Unspecified osteoarthritis, unspecified site Status: Acute (10) Varicose veins of left lower extremity with other complications: Code(s): I83.892 - Varicose veins of left lower extremity with other complications Status: Acute Plan Advised patient to full inpatient status Patient has multiple subsegmental pulmonary emboli diagnosed during workup in the ED 2D echo ordered to evaluate for right heart strain 2D echo showed preserved left ventricular function with the EF 65-70% without evidence of ventricular strain Bilateral lower leg venous Doppler ordered which ruled out deep vein thrombosis Spoke with Pulmonary and discuss about the patient's case in detail DC IV heparin, and started pt on oral Eliquis Eliquis 10 mg p.o. b.i.d. for 7 days followed by 5 mg p.o. b.i.d. Follow-up with care may arranging outpatient Eliquis DC planning in a.m. if she remains stable and cleared by Pulmonary ? Patient seen and examined at bedside during my morning rounds ? Collaborated with patient's nurse at the bedside in detail and addressed all concerns ? Labs, electrolytes, radiology, investigations and test results reviewed ? Consult/Nursing/Ancilliary notes on the chart reviewed and appreciated ? Spoke with patient/family at the bedside and answered all the questions that they had Repeat labs in a.m. Electrolyte replacement as per protocol. Patient will be monitored very closely on the floor. Further recommendations as per the hospital course. Time Spent With Patient Time with patient: 15 - 25 minutes Subjective Date/time seen: 09/11/23 17:39 Interval history: Patient lying in bed during my morning rounds. Shortness of tired of breath is improving. Still feels weak and tired Review of Systems Review of Systems: 14 systems were reviewed with pertinent positives and negatives per HPI. Except as documented in the HPI/progress notes, all other systems were reviewed and are negative. All systems reviewed & are unremarkable except as noted in HPI and below Exam Narrative: PHYSICAL EXAMINATION: Vital signs: Please see the chart General physical exam: Patient lying in bed, pleasant and cooperative with exam, appears tired and fatigue Head/eyes: Atraumatic, EOMI, PERRLA ENT: Moist mucous membranes, nasal passages clear Neck: Supple, full range of motion, trachea midline CVS: S1 + S2, regular rate and rhythm, no murmurs Respiratory: Bilaterally decreased air entry in both lung trujillo, mild B/L crackles, symmetric chest expansion, no distress Abdomen: Soft, non-tender, bowel sounds +ve, no organomegaly Extremities: No clubbing, no cyanosis, no edema, no calf tenderness Musculoskeletal: Moves all, adequate range of motion, no muscle spasms Skin: Warm, dry, no jaundice, no cyanosis Neurological: Awake, alert, oriented x 3, cranial nerves II-XII intact, no focal neurological deficits Psychiatr
[2023-09-11] MEDS: APIXABAN 5 MG TABLET 10 MG PO (17:42)
--- NOTE | 2023-09-11 22:56 | PM.PNPUL ---
Progress Note: A&P Assessment and Plan (1) Multiple subsegmental pulmonary emboli without acute cor pulmonale: Code(s): I26.94 - Multiple subsegmental pulmonary emboli without acute cor pulmonale Status: Acute Assessment and Plan: Found on CTA 09/09/23 with right heart strain. She does not have any apparent precipitating factors. She has not had any recent surgery, no history of cancer, she has not had any immobilization, no travel, airplane rides or long car rides. She is very active, works out twice a week with weight lifting and aerobic activities. There is no family history of thromboembolic disease. She has given 5 times and did not have problems with clots. She has had no hemoptysis. She has had intermittent shortness of breath worse with exertion but sometimes without exertion for 2 months. She has no alterations in vitals or saturation that are consistent with high risk PE. Her LE Doppler scheduled for tomorrow. Echo today has not been interpreted yet.however we expect to see some heart dysfunction as the CTA showed R heart strain. She is on Room Air, saturation is 97%. Plan is to transition her to oral anticoagulant based on what her insurance will cover. She does not need an IVC filter. She does not have any obvious risk for taking anticoagulants. She has fallen in the last year but both times, these were with activities outside normal daily living. Once was with a wave saw runner the [employer], trying to steady herself and her foot slipped. The other was walking down stairs in the dark holding her dog. She had no pulmonayr hypertension on new echo, she had mild pulmonary hypertension in 2014, not sure the cause. She smoked until 2002, around age 48. No underlying clinical lung disease. Will need PFTS in several weeks for a new baseline. Old testing showed small airways pattern. Walk study before discharge. Determine if she needs O2 with exertion. She has been on bedrest since admission. (2) GENESIS (obstructive sleep apnea): Code(s): G47.33 - Obstructive sleep apnea (adult) (pediatric) Status: Acute Assessment and Plan: compliant with treatment, has used CPAP for several years, last office visit was December 2022, just received a new APAP, on 7 cm to 15 cm water pressure with avg pressure 10.8 cm. Does not use when sinus issues are present, increased allergies. ApneaLink was not accurate, no evaluation time although the data that was seen showed lowest saturation 89%, GEORGIE 3.5 which is normal continue to use her own APAP while here (3) Opacity of lung on imaging study: Code(s): R91.8 - Other nonspecific abnormal finding of lung field Status: Acute Assessment and Plan: She has right upper lobe and right middle lobe tree-in-bud opacities as can be seen with atypical infection (MAC, TB, fungal), ABPA, airways disease (CF, bronchiectasis), and aspiration. These are not in the areas that the subsegmental pulmonary emboli are seen. She had a similar pattern on 07/11/[address], however no symptoms. plan: try to induce sputum for testing, using 3% NS and respiratory therapist to assist with airway clearance with Cornet valve. Test for fungal, AFB and bacterial causes. Rheumatoid factor and IgG subclasses as part of evaluation for bronchiectasis ordered Plan She is improving. Started oral Eliquis 10 mg b.i.d x 7 days then 5 mg b.i.d goal is 3 months Plan for her to go home tomorrow September 11. She can follow up in our office in 2 months, get PFTs, repeat imaging for the right upper lobe and right middle lobe tree-in-bud opacities Review all the lab testing at that time. Walk study in am to assure that she is stable to go home without O2. I will not see her tomorrow. Please call ifthere are questions. Thank
[2023-09-12] MEDS: SODIUM CHLOR 3% 15 ML NEB (RESPIRATORY THERAPY) 6 ML INHALATION (05:08)
[2023-09-12 05:10] VITALS: PULSE 65; RESP 18
[2023-09-12 05:19] VITALS: PULSE 64; RESP 18
[2023-09-12] MEDS: cloNIDine HCL 0.05 MG TABLET PO (05:36)
[2023-09-12] MEDS: LEVOTHYROXINE SODIUM 88 MCG TABLET PO (05:36)
[2023-09-12 06:15] LABS: Anion Gap 4 mmol/L (8-16); Blood Urea Nitrogen 10 mg/dL (7-17); Calcium 9.3 mg/dL (8.4-10.2); Carbon Dioxide 27 mmol/L (22-30); Chloride 102 mmol/L (98-107); Estimated CRCL calculation 57 ml/min; Estimated Glomerular Filt Rate > 60; Glucose 93 mg/dL (65-110); Sodium 133 mmol/L (137-145)
[2023-09-12 07:43] VITALS: BP 117/60; PULSE 60; RESP 18; TEMP 36.4; O2SAT 97
[2023-09-12] MEDS: LOPERAMIDE HCL 2 MG CAPSULE 4 MG PO (08:10)
[2023-09-12] MEDS: LIOTHYRONINE SODIUM 5 MCG TABLET PO (08:10)
[2023-09-12] MEDS: APIXABAN 5 MG TABLET 10 MG PO (08:10)
[2023-09-12] MEDS: PANTOPRAZOLE SOD SESQUIHYDRATE 20 MG TAB PO (08:10)
[2023-09-12] MEDS: busPIRone HCL 5 MG TABLET PO (08:11)
[2023-09-12] MEDS: busPIRone HCL 2.5 MG TABLET PO (08:11)
[2023-09-12 11:30] VITALS: PULSE 77; O2SAT 99
[2023-09-12 11:35] VITALS: PULSE 89; O2SAT 98
[2023-09-12 11:45] VITALS: PULSE 78; O2SAT 99
--- NOTE | 2023-09-12 12:37 | PM.DS ---
DS: Admitting Diagnosis Discharge Date 09/12/2023: Admitting Diagnosis (1) Pulmonary embolism: ?Code(s): I26.99 - Other pulmonary embolism without acute cor pulmonale ?Status:?Acute ?Assessment and Plan: Acute pulmonary embolism with right heart strain.? Continue IV heparin drip.? ED physician talked to the pulmonary service in [facility] was advised that patient is not a candidate for any intervention at this time. DS: Discharge Diagnosis Discharge Diagnosis (1) Multiple subsegmental pulmonary emboli without acute cor pulmonale: Code(s): I26.94 - Multiple subsegmental pulmonary emboli without acute cor pulmonale Status: Acute (2) Pulmonary embolism: Code(s): I26.99 - Other pulmonary embolism without acute cor pulmonale Status: Acute (3) Dyspnea on exertion: Onset Date: ~06/2023 Code(s): R06.09 - Other forms of dyspnea Status: Acute (4) Opacity of lung on imaging study: Code(s): R91.8 - Other nonspecific abnormal finding of lung field Status: Acute (5) Mid back pain: Code(s): M54.9 - Dorsalgia, unspecified Status: Acute (6) BMI 30.0-30.9,adult: Code(s): Z68.30 - Body mass index [BMI] 30.0-30.9, adult Status: Acute (7) Hypertension: Code(s): I10 - Essential (primary) hypertension Status: Acute (8) GENESIS (obstructive sleep apnea): Code(s): G47.33 - Obstructive sleep apnea (adult) (pediatric) Status: Acute (9) Anxiety: Code(s): F41.9 - Anxiety disorder, unspecified Status: Acute (10) Hypothyroidism, unspecified: Code(s): E03.9 - Hypothyroidism, unspecified Status: Acute (11) GERD without esophagitis: Code(s): K21.9 - Gastro-esophageal reflux disease without esophagitis Status: Acute (12) IBS (irritable bowel syndrome): Code(s): K58.9 - Irritable bowel syndrome without diarrhea Status: Acute (13) Lumbago: Code(s): M54.50 - Low back pain, unspecified Status: Acute (14) Osteoarthritis: Code(s): M19.90 - Unspecified osteoarthritis, unspecified site Status: Acute (15) Varicose veins of left lower extremity with other complications: Code(s): I83.892 - Varicose veins of left lower extremity with other complications Status: Acute DS: Summary Hospital Course Reason for hospitalization: Patient admitted with shortness of breath Hospital Course: H&P: HPI History of Present Illness Date/Time: 09/09/23? 20:58 Chief Complaint: Shortness of breath. This is a 68-year-old female patient with a past medical history of hypothyroidism GERD who came to the emergency room because of the abnormal labs.? Patient is having shortness of breath for about 2 months of unknown.? She went to see her primary care physician and dimer was ordered that was elevated she was sent to to get his CT angiogram chest.? Patient is awake alert not in acute distress.? Denies any fever chills dizziness lightheadedness no blurred vision complains of shortness of breath denies any cough denies any chest pain denies any nausea no vomiting no diarrhea no dysuria no muscle and joint pains.? Vital signs in the emergency room was stable.? Cbc was mainly in range.? CMP was significant for sodium 133 BUN 23.? Troponin was normal.? CT of chest showed multiple cysts segmental nonocclusive acute emboli in the lingula and bilateral lower lobes.? Moderate clot burden.? Evidence of right heart strain.? Patient started on IV heparin drip. HOSPITAL COURSE ... Date of Admission - 09/11/2023: Plan Advised patient to full inpatient status Patient has multiple subsegmental pulmonary emboli diagnosed during workup in the ED 2D echo ordered to evaluate for right heart strain 2D echo showed preserved left ventricular function with the EF 65-70% without evidence of ventricular strain Bilateral lower leg venous Doppler ordered which ruled out deep vein thrombosis Spoke with
[2023-09-13 10:34] LABS: Immunoglobulin G, Serum 851 mg/dL (600-1540); Immunoglobulin G1 482 mg/dL (382-929); Immunoglobulin G2 334 mg/dL (241-700); Immunoglobulin G3 12 mg/dL (22-178)
== END 2023-09-12 13:51 | disposition home or self-care (01) | DRG 176 ==
LOC: ANHED 17:43 → ANHIMU 20:38
PROVIDERS: Internal Medicine Critical Care Medicine; Admitting Provider Internal Medicine Infectious Disease; Emergency Provider Physician Assistant; PCP Physician Assistant Medical; Visit Provider Family Medicine
DX: I26.99 Other pulmonary embolism without acute cor pulmonale (principal); I26.94 Multiple subsegmental thrombotic pulmonary emboli without acute cor pulmonale; E03.9 Hypothyroidism, unspecified; F41.9 Anxiety disorder, unspecified; G47.33 Obstructive sleep apnea (adult) (pediatric); I11.9 Hypertensive heart disease without heart failure; K21.9 Gastro-esophageal reflux disease without esophagitis; K58.9 Irritable bowel syndrome, unspecified; M54.50 Low back pain, unspecified; R19.7 Diarrhea, unspecified; Z90.89 Acquired absence of other organs; Z90.49 Acquired absence of other specified parts of digestive tract; Z90.710 Acquired absence of both cervix and uterus; Z87.891 Personal history of nicotine dependence; Z99.89 Dependence on other enabling machines and devices
CPT/HCPCS: 36415; 71275; 80048; 80053; 82784; 82787; 83880; 84100; 84484; 85025; 85610; 85730; 86430; 93005; 93306; 93970; 94618; 94640; 94762; 96365; 96366; 99285; A9270; G0378; J1644; Q9967

== ENCOUNTER 2023-09-23 10:08 | Emergency (ER) | payer MEDICARE, SELFPAY ==
--- NOTE | ~2023-09-23 | US_ITS ---
EXAMINATION: US venous doppler LE RT DATE: 09/23/2023 13:12 INDICATION: Right calf pain. TECHNIQUE: Grayscale ultrasound images without and with compression and Doppler ultrasound images of the right lower extremity veins were obtained. COMPARISON: Ultrasound 09/11/2023 FINDINGS: The visualized portions of right common femoral vein, profunda (deep) femoral vein, femoral vein, pop liteal vein, peroneal veins, posterior tibial veins, and greater saphenous vein outflow are patent. IMPRESSION: 1. No deep venous thrombosis. Reviewed, dictated and finalized at location E.
--- NOTE | ~2023-09-23 | XR_ITS ---
XR chest 2V 09/23/2023 11:12 Indication: Shortness of breath Procedure: PA and lateral views the chest Comparison: CT chest dated 09/09/2023 Findings: there is a small pulmonary nodule overlying the right lower thorax just above the diaphragm . Heart size normal. There is subtle right upper lobe infiltrate. No pleural effusion, edema or pneum othorax. No acute osseous abnormality. Impression: 1: Subtle right upper lobe infiltrate and right lower lung nodule. These findings may be infectious/i nflammatory, although follow-up CT in 6 months recommended. Reviewed, dictated and finalized at location L. Impression: 1: Subtle right upper lobe infiltrate and right lower lung nodule. These findin gs may be infectious/inflammatory, although follow-up CT in 6 months alysia valderrama
[2023-09-23 10:18] VITALS: BP 155/96; PULSE 68; RESP 23; TEMP 36.8; O2SAT 100
--- NOTE | 2023-09-23 10:20 | ECG_ITS ---
Measurements Intervals Freeman Rate: 74 P: 38 UT: 177 QRS: -21 QRSD: 82 T: 36 QT: 391 QTc: 436 Interpretive Statements SINUS RHYTHM RSR' IN V1 OR V2, PROBABLY NORMAL VARIANT LOW QRS VOLTAGE IN PRECORDIAL LEADS BORDERLINE ECG COMPARED TO ECG 09/09/2023 17:01:45 NO SIGNIFICANT CHANGES Electronically Signed On 09-23-2023 10:58:28 CDT by Ulysses Sung D.O.
--- NOTE | 2023-09-23 10:56 | ED.WEAKNESS ---
HPI - Weakness General Chief complaint: Shortness of Breath/Dyspnea Stated complaint: SOB, WEAKNESS Time Seen by Provider: 09/23/23 10:20 Source: patient Mode of arrival: ambulatory Limitations: no limitations History of Present Illness HPI Narrative: This is a 68-year-old female that presents to the emergency department for lightheadedness. Reports yesterday she felt just generally unwell. She had an episode where she felt like her heart was racing. Since this morning she has had intermittent episodes of feeling lightheaded. Reports feeling like she could pass out. She was recently admitted to the hospital and diagnosed with PE. She is currently on Eliquis. Reports some shortness of breath. She has had some cramping in her right calf. Denies fever, cough, chest pain, or lower extremity edema. Related Data Home Medications Medication Instructions Recorded Confirmed loperamide 2 mg tablet (Imodium 2 mg PO BID PRN Diarrhea 07/31/21 09/16/23 A-D) buspirone 15 mg tablet 7.5 mg PO BID 09/08/23 09/16/23 clonidine HCl 0.1 mg tablet 0.05 mg PO TID 09/08/23 09/16/23 liothyronine 5 mcg tablet 5 mcg PO BID 09/08/23 09/16/23 rabeprazole 20 mg tablet,delayed 20 mg PO BID 09/08/23 09/16/23 release alprazolam 0.25 mg tablet (Xanax) 0.25 mg PO BID anxiety 09/09/23 09/16/23 cetirizine 10 mg tablet (Zyrtec) 10 mg PO DAILY 09/09/23 09/16/23 levothyroxine 75 mcg tablet 88 mcg PO DAILY 09/09/23 09/16/23 (Synthroid) Allergies Allergy/AdvReac Type Severity Reaction Status Date / Time LA NENA Inhibitors Allergy Unknown Unknown Verified 09/16/23 09:33 Beta-Blockers Allergy Unknown Unknown Verified 09/16/23 09:33 (Beta-Adrenergic Bloc moxifloxacin Allergy Unknown Unknown Verified 09/16/23 09:33 Latex, Natural Rubber Allergy Swelling Verified 09/16/23 09:33 sulfamethoxazole AdvReac Mild Nausea Verified 09/23/23 11:49 [From Bactrim] trimethoprim [From Bactrim] AdvReac Mild Nausea Verified 09/23/23 11:49 azithromycin AdvReac Unknown diarrhea Verified 09/16/23 09:33 [From Zithromax Z-Lyle] Review of Systems Review of Systems: CONSTITUTIONAL: Denies fever CARDIOVASCULAR: Reports palpitations. Denies chest pain or edema. RESPIRATORY: Reports dyspnea. Denies cough All systems reviewed & are unremarkable except as noted in HPI and below PMFSH Past Medical History Medical History Anxiety BMI 30.0-30.9,adult Claustrophobia Epigastric pressure GERD (gastroesophageal reflux disease) GERD without esophagitis Hypertension Hypothyroidism, unspecified IBS (irritable bowel syndrome) Mallet finger of right hand Mid back pain Nonrheumatic mitral (valve) prolapse Nonrheumatic mitral valve regurgitation GENESIS (obstructive sleep apnea) Osteoarthritis Screening for colon cancer Thyroid nodule Wears glasses Weight gain Surgical History Surgical History H/O partial thyroidectomy History of cholecystectomy Hx of hysterectomy S/P SALEEM-BSO Family History Family History Sibling Patient's sister is in good health Patient's brother is in good health Family history of sleep apnea Mother Family history of Parkinson's disease, Onset Age: 88 Father Malignant neoplasm of prostate Patient's father is , Onset Age: 83 MDS (myelodysplastic syndrome) Grandparent Family history of malignant neoplasm Other Diabetes mellitus Family history of arthritis Family history of blood dyscrasia Family history of coronary artery disease Family history of mental disorder Family history of type 1 diabetes mellitus Hypertension Social History Social History Smoking packs per day: 1 Smoking cigarettes per day: 20.0 Years smoked: 35 Smoking pack-years: 35.00 Smoking status: Former smo
[2023-09-23 11:11] LABS: Basophils Absolute Auto 0.1 K/mm3 (0.0-0.1); Basophils Percent Auto 0.7 % (0.2-1.2); Eosinophils Absolute Auto 0.1 K/mm3 (0-0.3); Eosinophils Percent Auto 1.5 % (0-4.4); Hematocrit 38.1 % (37.0-47.0); Hemoglobin 12.4 g/dL (12.0-15.0); Immature Granulocyte Absolute 0.01 K/mm3 (0.00-0.031); Immature Granulocyte Percent A 0.1 % (0-0.5); Lymphocytes Absolute Auto 1.08 K/mm3 (0.9-3.2); Mean Corpuscular HGB Conc 32.5 g/dl (32-36); Mean Corpuscular Hemoglobin 30.9 pg (26-34); Mean Platelet Volume 11.2 fl (7.4-10.4); Monocytes Absolute Auto 0.7 K/mm3 (0.1-0.6); Monocytes Percent Auto 10.2 % (2.6-8.5); Neutrophils Absolute Auto 4.8 K/mm3 (1.3-6.7); Neutrophils Percent Auto 71.5 % (45.5-73.1); Platelet Count Result 253 k/mm3 (150-375); Red Blood Count 4.01 M/mm3 (4.2-5.4); Red Cell Distribution Width 12.2 % (11.5-14.5); White Blood Count 6.8 K/mm3 (4.5-10.0)
[2023-09-23 11:14] LABS: Appearance Urine Clear (Clear); Color Urine Yellow (Yellow)
[2023-09-23 11:15] LABS: Add Urine Microscopic? NO; Glucose Urine UA Negative (Negative); Protein Urine Negative (Negative); Specific Grav Ur <= 1.005 (1.001-1.035)
[2023-09-23 11:16] LABS: Bilirubin Urine Negative (Negative); Blood Urine Negative (Negative); Ketones Urine Negative (Negative); Leukocyte Esterase Ur Negative LEU/UL (Negative); Nitrate Urine Negative (Negative); Urobilinogen Urine 0.2 mg/dL (<2.0)
[2023-09-23 11:24] LABS: Alanine Aminotransferase 18 U/L (6-35); Albumin Level 4.2 g/dL (3.5-5.1); Alkaline Phosphatase 79 U/L (38-126); Anion Gap 7 mmol/L (4-12); Aspartate Amino Transferase 23 U/L (14-36); Bilirubin,Total 0.5 mg/dL (0.2-1.3); Blood Urea Nitrogen 17 mg/dL (7-17); Calcium 9.2 mg/dL (8.4-10.2); Carbon Dioxide 25 mmol/L (22-30); Chloride 104 mmol/L (98-107); Estimated Glomerular Filt Rate > 60; Glucose 92 mg/dL (65-110); Potassium 4.3 mmol/L (3.4-5.0); Sodium 136 mmol/L (137-145)
[2023-09-23 11:36] LABS: Troponin I < 0.012 ng/mL (0.000-0.034)
[2023-09-23 11:43] VITALS: BP 139/87; PULSE 64; RESP 19; O2SAT 100
[2023-09-23 11:45] LABS: Influenza A QL RT-PCR Negative (Negative); Influenza B QL RT-PCR Negative (Negative); RSV RNA, RT-PCR Negative (Negative); SARS-CoV-2 RNA PCR Negative (Negative)
[2023-09-23] MEDS: SODIUM CHLORIDE 0.9% IV 500 ML 999 ML IV CONT (11:56)
[2023-09-23 12:34] VITALS: BP 133/87; PULSE 57; RESP 16; O2SAT 100
[2023-09-23 14:03] VITALS: BP 136/87; PULSE 66; RESP 18; O2SAT 99
== END 2023-09-23 14:06 | disposition home or self-care (01) ==
PROVIDERS: Emergency Provider Physician Assistant; PCP Physician Assistant Medical
DX: R42 Dizziness and giddiness (principal); R91.1 Solitary pulmonary nodule; Z20.822 Contact with and (suspected) exposure to COVID-19; F41.9 Anxiety disorder, unspecified; K21.9 Gastro-esophageal reflux disease without esophagitis; I10 Essential (primary) hypertension; E03.9 Hypothyroidism, unspecified; G47.30 Sleep apnea, unspecified; M19.90 Unspecified osteoarthritis, unspecified site
CPT/HCPCS: 36415; 71046; 80053; 81003; 84484; 85025; 87637; 93005; 93971; 96360; 99284; J7040

== ENCOUNTER 2023-11-17 08:23 | Outpatient (CLI) | payer MEDICARE, SELFPAY ==
--- NOTE | ~2023-11-17 | XR_ITS ---
EXAMINATION: XR barium swallow DATE: 11/17/2023 09:06 INDICATION: Abdominal pain. Heartburn. TECHNIQUE: The patient drank thick barium, gas-producing crystals, and thin barium. Fluoroscopy of th e hypopharynx and esophagus was performed. Fluoroscopy exposure time was 0.3 minutes. The total numbe r of images was 265. The dose-area product was 1.183 Gy-cm^2. COMPARISON: Chest CT 09/09/2023 FINDINGS: There is no mass or stricture of the esophagus. Esophageal motility is normal. There is no hiatal hernia. There was gastroesophageal reflux with provocative maneuvers. IMPRESSION: 1. Gastroesophageal reflux with provocative maneuvers. Reviewed, dictated and finalized at location A.
== END 2023-11-17 08:24 | disposition home or self-care (01) ==
LOC: ANHIMG 08:26
PROVIDERS: PCP Physician Assistant Medical
DX: K21.00 Gastro-esophageal reflux disease with esophagitis, without bleeding (principal)
CPT/HCPCS: 74220

== ENCOUNTER 2024-01-05 15:45 | Outpatient (RCR) | payer MEDICARE, SELFPAY ==
--- NOTE | 2023-12-03 16:23 | PTOPEVAL1 ---
Assessment and note entered by Isabelle King, PT Evaluation Information Assessment Status Evaluation Diagnosis low back pain Therapy Conditions weakness abnormal alignment stiffness in right hip Subjective Information August of 2023 was diagnosed with blood clots in lungs. Was told not to work out anymore because it puts such a strain on her heart. Recently got the ok to use light weight and multiple reps but absolutely no cardio. Cardiology and pulmonology and PCP all said this. 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 Pain went both legs. PCP was able to get pt in and get a steroid shot and physical therapy order. In the mean time has gotten a lot better, did ice in the beginning. Every once in a while, can feel it with certain activities like I shouldn't do that . Usually a bend causing this. Is more conscious of not twisting . Riding in a care was bad in the beginning but last night drove and noticed pain wasn't bad but everything tightens up quickly. Reported Pain Level Pain Score 1: Self Report Additional Pain Score Comments no longer getting tingling or pain in the LEs Assessment PT Clinical Summary Pt present for evaluation of back pain that occurred with bending recently. She received a steroid shot from her PCP the next day and the pain has since reduced significantly however she reports she can still feel it at times. Pain goes 1-3/10 but is never 0/10, states radicular pain has ceased. Also had been to therapy previously at which point she began wearing a heel lift and has since ceased wearing it but isn't 100% sure which shoe it was supposed to go into. Today pt presents with standing postural/alignment deficits, pelvic alignment issues suggestive of LLE >RLE, right hip ROM stiffness compared to left , decreased flexibility, and weakness overall. Pt likely had a flare up of prior issues due to alignment deficit while bending. Pt will greatly benefit from physical therapy in order to address current deficits and return to PLOF. Plan of Care Interventions Electrical Stimulation,Hot Pack/Cold Pack,Manual Therapy,Neuro Re-education,Patient/Caregiver Educati,Therapeutic Activities,Therapeutic Exercise,Self-Care/Home Management,Ultrasound, Other PT Services Indicated Yes Treatment Frequency and 1-2
--- NOTE | 2023-12-03 16:24 | OPREHPOC ---
Outpatient Therapy Plan of Care This is a Multidisciplinary Plan of Care that may contain components documented by all disciplines (PT, OT, and ST.) PT Problem 1 PT Problem #1 Knowledge Deficit PT Goal 1 Goal Pt will be independent in HEP Pt will verbalize understanding of diagnosis and prognosis PT Problem 2 PT Problem #2 Pain PT Goal 1 Goal Pt will report lowest pain rating at 0/10 to show improvement in overall discomfort Target Visit 6 PT Goal 2 Goal Pt will report resolution of pain to return to PLOF Target Visit 12 PT Problem 3 PT Problem #3 Impaired Range of Motion PT Goal 1 Goal Pt will demo equal AROM R hip comapred to left Target Visit 12 PT Goal 2 Goal Flexibility: Pt will demo only mild deficits in flexibility of all tested muscles Target Visit 12 PT Problem 4 PT Problem #4 Impaired Strength PT Goal 1 Goal Pt will demo strength of 4/5 in all tested planes karen gluteus medius and ant Target Visit 12
--- NOTE | 2023-12-17 13:55 | PCPTNOTE ---
call canceled due to rash. AKS
--- NOTE | 2024-01-05 16:30 | PTOPDC ---
Assessment and note entered by Isabelle King, PT Evaluation Information Assessment Status Discharge Diagnosis low back pain Subjective Information Pt has been consistent with her heel lift. Noted forgot her heel lift one day and noted a difference. No longer tightening up when in the car. States is still doing well with monitoring her alignment. Feels back to 100% normal Reported Pain Level Pain Score 0: Self Report Assessment PT Clinical Summary Pt has attended therapy consistently for flare up of her back pain. she has returned to using her heel lift, has obtained and maintained 0/10 pain for over a week, and feels confident in her home exercises. While she still has some right hip ROM deficit, is well within normal limits. Pt feels she has returned to normal. Thus she is being discharged for completion of POC. Plan of Care PT Services Indicated No
== END 2024-01-06 14:37 | disposition home or self-care (01) ==
LOC: ANHHIPT 15:45
PROVIDERS: PCP Physician Assistant Medical; Visit Provider Physician Assistant Medical
DX: M54.50 Low back pain, unspecified (principal)
CPT/HCPCS: 97110; 97140; 97162; 97530; 97750

== ENCOUNTER 2024-01-14 11:43 | Outpatient (CLI) | payer MEDICARE, SELFPAY ==
--- NOTE | ~2024-01-14 | CT_ITS ---
Clinical Indication: Lung nodule CT Scan of the Chest with Contrast: Technique: Contiguous sections were acquired throughout the chest after intravenous administration of 75 cc of Omnipaque 350. Dose reduction technique was used on this scan by utilizing automated exposu re control and iterative reconstruction technique. The dose-length product (DLP) was 341.42 mGy-cm. COMPARISON: 09/09/1943 Findings: There is no evidence of any significant mediastinal, hilar or axillary lymphadenopathy. There is no f illing defect in the pulmonary arterial tree to suggest pulmonary embolus. There is no evidence of ao rtic dissection or aneurysm. There is no evidence of pleural or pericardial effusion. Stable focal areas of tree-in-bud type irregular opacities in the peripheral right upper lobe. Right apical calcified granuloma unchanged. Stable probable focal nodularity in the right middle lobe. Images through the upper abdomen reveal no abnormalities. Impression: Stable focal peripheral irregular opacities in the right upper lobe and right middle lobe, suggestive of chronic scarring and/or small airways infection. No pulmonary embolus seen on the current exam. Reviewed, dictated and finalized at [facility]. Impression: Stable focal peripheral irregular opacities in the right upper lobe and right m iddle lobe, suggestive of chronic scarring and/or small airways infection. No pulmonary embolus seen on the current exam.
[2024-01-14 12:11] LABS: Estimated Glomerular Filt Rate 55
== END 2024-01-14 11:44 ==
LOC: MICIMG 11:45
PROVIDERS: PCP Physician Assistant Medical; Visit Provider Thoracic Surgery (Cardiothoracic Vascular Surgery)
DX: R91.1 Solitary pulmonary nodule (principal); R91.8 Other nonspecific abnormal finding of lung field
CPT/HCPCS: 71260; Q9967

== ENCOUNTER 2024-01-26 14:18 | Outpatient (CLI) | payer MEDICARE, SELFPAY ==
--- NOTE | 2024-01-29 12:33 | WPDHOLTEREM ---
Holter/Event Monitor Holter/Event Monitor Date of procedure: 01/26/24 Holter/Event Procedure: 48 Hr Holter Monitor Indications: Palpitations Conclusion: 1. 48 hour holter monitor on 01/26/24. 2. Underlying rhythm is sinus rhythm. HR range 45-111 bpm; average HR 71 bpm. 3. There are 61 premature supraventricular complexes and 8 supraventricular couplets. No supraventricular tachycardia. 4. There are 1,222 premature ventricular complexes and 3 ventricular trigeminy. No ventricular tachycardia. 5. No sinoatrial or atrioventricular blocks. No significant pauses greater than 2 seconds. 6. No symptoms available for correlation.
== END 2024-01-26 14:19 | disposition home or self-care (01) ==
LOC: ANHCARD 14:18
PROVIDERS: PCP Physician Assistant Medical; Visit Provider Internal Medicine Cardiovascular Disease
DX: R00.2 Palpitations (principal)
CPT/HCPCS: 93225; 93226

== ENCOUNTER 2024-10-01 11:03 | Outpatient (CLI) | payer MEDICARE, SELFPAY ==
--- NOTE | ~2024-10-01 | CT_ITS ---
Clinical Indication: Lung nodule CT Scan of the Chest with Contrast: Technique: Contiguous sections were acquired throughout the chest after intravenous administration of 75 cc of Omnipaque 350. Dose reduction technique was used on this scan by utilizing automated exposu re control and iterative reconstruction technique. The dose-length product (DLP) was 336.00 mGy-cm. COMPARISON: 01/14/2024 Findings: There is no evidence of any significant mediastinal, hilar or axillary lymphadenopathy. There is no f illing defect in the pulmonary arterial tree to suggest pulmonary embolus. There is no evidence of ao rtic dissection or aneurysm. There is no evidence of pleural or pericardial effusion. Stable tree-in-bud type opacities versus post inflammatory scarring in the lateral right upper lobe. Stable small pleural-based nodule at the lateral right lung base. Images through the upper abdomen reveal no abnormalities. Impression: Stable focal tree-in-bud opacities versus postinflammatory change at the lateral right upper lobe. Stable subcentimeter pleural-based nodule right lower lobe. Reviewed, dictated and finalized at location . Impression: Stable focal tree-in-bud opacities versus postinflammatory change at the latera l right upper lobe. Stable subcentimeter pleural-based nodule right lower lobe.
[2024-10-01 11:30] LABS: Estimated Glomerular Filt Rate 55
--- OUTSIDE RECORDS SUMMARY | 2024-10-01 11:37 | XMS_ITS | Encounter Summary ---
Author Organization [facility] Address [address] [place] [address] Care Team Providers Care Production Recorder Name Role Phone Beth Murdock DO Primary Care Provider [phone] Mag Zamora Primary Care Provider [phone] Encounter Details Date Type Department Care Team (Late st Contact Info) Description 01/13/2014 Abstract [facility] CONVERSION [address] [place], [place] [id number] , Generic ConversionMD Social History Tobacco Use Types Packs/Day Years Used Date Smoking Tobacco: Never Assessed Comments Unknown Sex and Gender Information Value Date Recorded Sex Assigned at Not on file Legal Sex Female 3:28 PM CDT Gender Identity Not on file Sexual Orientation Not on file documented as of this encounter Plan of Treatment Not on file documented as of this encounter Visit Diagnoses Not on filedocumented in this encounter Care Teams Production Recorder Relationship Specialty Start Date End Date Beth Murdock DO PCP - General FAMILY PRACTICE 04/16/21 01/22/24 Mag Zamora PA [address] [place] [id number] PCP - General PHYSICIAN IP LITIGATION PARALEGAL 01/23/24 documented as of this encounter
--- OUTSIDE RECORDS SUMMARY | 2024-10-01 11:37 | XMS_ITS | Clinical Summary ---
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 Gender Identity Not on file Sexual Orientation Not on file Plan of Treatment Health Maintenance Due Date Last Done Comments DTAP/TDAP/TD VACCINES (1 - Tdap) 1972 BREAST CANCER SCREENING 1993 COLORECTAL SCREENING 1998 Colorectal Cancer Screening 1998 FIT-DNA Q 3 years 1998 FIT/FOBT Q 1 year 1998 Flex Sig/CT Colonography Q 5 years 1998 PNEUMOCOCCAL VACCINE 50+ YEARS (1 of 1 - PCV) 06/10/20 03 ZOSTER VACCINE (1 of 2) 2003 OSTEOPOROSIS SCREENING 2018 INFLUENZA VACCINE (#1) 2024 RSV VACCINE (60+ or ) (1 - 1-dose 75+ series) 2028 Care Teams Lining Mechanic Relationship Specialty [place] [address] [address] PCP - General 02/03/03
--- OUTSIDE RECORDS SUMMARY | 2024-10-01 11:37 | XMS_ITS | Encounter Summary ---
Author Organization [facility] Address [address] [place] [address] Care Team Providers Care Strategy Planning Consultant Name Role Phone Jerman Brooks MD Primary Care Provider [phone]- [phone] Encounter Details Date Type Department Care Team (Late st Contact Info) Description 10/28/2003 Outpatient [place] [address] [facility] [address] [place] [address] Social History Tobacco Use Types Packs/Day Years Used Date Smoking Tobacco: Never Assessed Comments Unknown Sex and Gender Information Value Date Recorded Sex Assigned at Not on file Legal Sex Female 5:10 AM PRESS SETTER Gender Identity Not on file Sexual Orientation Not on file documented as of this encounter Plan of Treatment Not on file documented as of this encounter Visit Diagnoses Not on filedocumented in this encounter Care Teams Strategy Planning Consultant Relationship Specialty [place] [address] [address] PCP - General 02/03/03 documented as of this encounter
--- OUTSIDE RECORDS SUMMARY | 2024-10-01 11:37 | XMS_ITS | Encounter Summary ---
Author Organization [facility] Address [address] [place] [address] Care Team Providers Care Coconut Cooker Name Role Phone Beth Murdock DO Primary Care Provider [phone]- [phone] Mag Zamora Primary Care Provider [phone] Encounter Details Date Type Department Care Team (Late st Contact Info) Description 09/18/2016 Abstract [facility] CONVERSION [address] [place], [place] [id number] , Generic ConversionMD Social History Tobacco Use [...] on filedocumented in this encounter Care Teams Coconut Cooker Relationship Specialty Start Date End Date Beth Murdock DO PCP - General FAMILY PRACTICE 04/16/21 01/22/24 Mag Zamora PA [address] [place] [id number] PCP - General PHYSICIAN RING STRIKER 01/23/24 documented as of this encounter
--- OUTSIDE RECORDS SUMMARY | 2024-10-01 11:37 | XMS_ITS | Encounter Summary ---
Author Organization [facility] Address [address] [place] [address] Care Team Providers Care Pipelayer Name Role Phone Jerman Brooks MD Primary Care Provider [phone]- [phone] Encounter Details Date Type Department Care Team (Latest Contact Info) Description 03/14/2003 Inpatient Historical HIS PATIENT IN A BED Elías Durán MD [address] [facility] [facility] [address] [place] [id number] NONTOX UNINODULAR GOITER (Primary Dx) Social History Tobacco Use Types Packs/Day Years Used Date Smoking Tobacco: Never Assessed Comments Unknown Sex and Gender Information Value Date Recorded Sex Assigned at Not on file Legal Sex Female 5:10 AM RANGELANDS CONSERVATION LABORER Gender Identity Not on file Sexual Orientation Not on file documented as of this encounter Plan of Treatment Not on file documented as of this encounter Visit Diagnoses Diagnosis Nontoxic uninodular goiter- Primary documented in this encounter Care Teams Pipelayer Relationship Specialty [place] [address] [address] PCP - General 02/03/03 documented as of this encounter
--- OUTSIDE RECORDS SUMMARY | 2024-10-01 11:37 | XMS_ITS | Clinical Summary ---
Author Organization [facility] Address [address] [place] [id number] Care Team Providers Care Underwater Welder Name Role Phone Reynaldo Fox MD Unavailable [phone] Mag Zamora Primary Care Provider [phone] Allergies Active Allergy Reactions Criticality Noted Date Comments Lisinopril Moxifloxacin Fatigue Low Reaction: Fatigue, Medications celecoxib (CeleBREX) 200 mg capsule take 1 capsule (200MG) by oral route 2 times every day as needed 0 1 Active ranitidine (ZANTAC) 150 mg capsule take 1 capsule (150MG) by oral route 1 times every day as needed 0 0 1 Active dicyclomine (BENTYL) 10 mg capsule take 1 capsule (10MG) by oral route 3 times every day [address] (ACIPHEX) 20 mg EC tablet Take one by mouth bid 0 0 2 Active loratadine-pseu doephedrine (CLARITIN-D 24 HOUR) 10-240 mg per 24 hr tablet Take one by mouth one time per day 0 0 2 Active Additional Information Patient not taking.Reported on 07/31/2023 liothyronine (CYTOMEL) 5 mcg tablet Take one by mouth two times per day 180 3 0 Active levothyroxine (SYNTHROID) 75 mcg tablet Take one by mouth one time per day 90 3 8 Active Additional Information Patient taking differently: 88 mcg oral, Reported on 07/31/2023 multivitamin tablet tablet Take according to qkqo-btc-ybcyupj package directions 0 0 8 Active calcium-vitamin D3-vitamin K (VIACTIV) 500-100-40 mg-unit-mcg tablet,chewable Take according to hpgr-hxq-uknpxqt package directions 0 0 8 Active ascorbic acid (ascorbic acid with judd hips) 500 mg tablet Take one by mouth one time per day as needed 0 0 8 Active ALPRAZolam (XANAX) 0.25 mg tablet Take one by mouth one time per day as needed 0 0 8 Active busPIRone (BUSPAR) 15 mg tablet TAKE 1/2 TABLET TWICE A DAY BY MOUTH Active meloxicam (MOBIC) 7.5 mg tablet Take 1 tablet (7.5 mg total) by mouth every 12 (twelve) hours as needed for pain 4 Active cetirizine (ZyrTEC) 10 mg tablet Take 1 tablet (10 mg total) by mouth daily Active cloNIDine (CATAPRES) 0.1 mg tablet TAKE 1/2 TABLET BY MOUTH THREE TIMES DAILY Active loperamide (IMODIUM) 2 mg capsule Take 1 capsule (2 mg total) by mouth 4 (four) times a day as needed Active Eliquis 5 mg tablet 4 Active Active Problems Patient Care Coordination No te Formatting of this note migh t be different from the original. Referring provider: Dr. Keith Hatfield Ms. Lilia Roa Is a 68-year-old with a lung nodule. The patient initially presented with symptoms of abdominal pain. On 05/16/20[address] the patient [address] a CT of the abdomen and pelvis which incidentally noted a 9 mm right middle lobe lung nodule. This was not seen on the prior exam. On 07/11/2023 the patient underwent a chest CT with contrast which noted stable tree-in-bud nodularity focally at the peripheral inferior right upper lobe, suggestive of small areas of infectious process. There was stable nodularity in the right middle lobe which could reflect chronic smoker's infectious process and/or postoperative scarring. There was a small pleural-based nodule in the right lower lobe. She has a former smoker. Patient presents today for further surgical evaluation. 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 Thyroid activity decreased 12/28/2014 Nontoxic uninodular goiter 11/13/2013 Overview (10/04/2016): NONTOX UNINODULAR GOITER Hypothyroidism 11/13/2013 Overview (10/04/2016): HYPOTHYROIDISM NOS Muscle pain 03/29/2013 Encounters Date Type Department Care Team Description 09/23/2024 Telephone [facility] [address] [place] [address] Debra Anderson RMA 09/23/2024 Orders Only [facility] [address] [place] [address] Talib Omalley MD Lung nodule (Primary Dx) from Last 3 Months Surgical History Surgery Date Site/Laterality Comments CHOLECYSTECTOMY Cholecystectomy HYSTERECTOMY Hysterectomy THYROIDECTOMY 2002 Thyroidectomy CHOLECYSTECTOMY Cholecystectomy - (Added by TW Conv) HYSTERECTOMY Hysterectomy - (Added by TW Conv) THYROIDECTOMY, PARTIAL Near-Total Thyroidectomy - (Added by TW Conv) Medical History Medical History Date Comments Hx Other Medical rt thyroid lobe ctomy Disorder of thyroid Thyroid dise ase Family History Medical History Relation Name Comments Cancer Father Cancer - mds (A dded by TW Conv) Hypertension Mother Hypertension - (Added by TW Conv) Thyroid disease Mother Thyroid Diso rder - (Added by TW Conv) Hypothyroidism Other 1 Family histor y of Hypothyroidism; Diabetes type II Other 2 Family hist ory of Diabetes -Type II; Diabetes type I Son Type 1 Diabe cecil Mellitus - (Added by TW Conv) Relation Name Status Comments Father Mother Other 1 Other 2 Son Social History Tobacco Use Types Packs/Day Years Used Date Smoking Tobacco: Former Cigarettes 1 35 1 968 - 2002 Tobacco Cessation:Counseling Given: Not Answered Alcohol Use Standard Drinks/Week Comments No 0 (1 standard drink = 0.6 oz pur e alcohol) AUDIT-C Answer Date Recorded Frequency of Alcohol Consumption Not on file 01/15/2024 Q2: How many drinks containi ng alcohol do you have on a typical day when you are drinking? Patient does not drink Frequency of Binge Drinking Not on file 12/28 Comments Unknown Sex and Gender Information Value Date Recorded Sex Assigned at Not on file Legal Sex Female 12:36 AM ROCK WOOL APPLICATOR Gender Identity Female 10/05/2019 9:15 AM CDT Sexual Orientation Straight 10/05/2019 9: 15 AM CDT Obstetrics History Last Filed Vital Signs Vital Sign Reading Time Taken Comments Blood Pressure 140/85 01/15/2024 10:08 AM CDT Pulse 60 01/15/2024 10:08 AM CDT Temperature 36.3 C (97.4 F) 01/15/2024 10:08 AM CDT Respiratory Rate 18 01/15/2024 10:08 AM CDT Oxygen Saturation 100% 01/15/2024 10:08 AM CDT Inhaled Oxygen Concentration - - Weight 79.8 kg (176 lb) 01/15/2024 10:08 AM CDT Height 162.6 cm (5' 4 ) 07/31/2023 10:53 AM ROCK WOOL APPLICATOR Body Mass Index 30.21 07/31/2023 10:53 AM ROCK WOOL APPLICATOR Plan of Treatment Health Maintenance Due Date Last Done Comments Colon Cancer Screening-Colonoscopy 1953 Depression Screening 1953 Fall Risk Assessment 1953 Hepatitis C Screening 1953 Hepatitis B Screening 1971 Pneumococcal vaccine 65+ (1 of 1 - PCV) 2003 Zoster Vaccine (1 of 2) 2003 Well Visit 65+ 2018 Breast Cancer Screening-Mammogram 05/09/2023 022, 05/09/2022 Osteoporosis Screening-Bone Density Scan 05/09/2024 05/09/2022 DTaP/Tdap/Td Vaccine (2 - Td or Tdap) 12/27/2024 Influenza Vaccine (Season Ended) 2025 01/10/20 12 Insurance MEDICARE [facility] MEDICARE [facility] OPT[employer] PPO Care Teams Underwater Welder Relationship Specialty Start Date End Date Mag Zamora PA [address] [place] [address] PCP - General Physician Information Technology Auditor 01/15/24 Reynaldo Fox MD [address] [facility] [address] [place] [address] Consulting Physician Gastroenterology 10/03/23
--- OUTSIDE RECORDS SUMMARY | 2024-10-01 11:37 | XMS_ITS | Encounter Summary ---
Author Organization [facility] Address [address] [place] [address] Care Team Providers Care Stage Settings Painter Name Role Phone Beth Murdcok DO Primary Care Provider [phone] Mag Zamora Primary Care Provider [phone] Encounter Details Date Type Department Care Team (Late st Contact Info) Description 04/30/2019 Abstract [facility] at [address] [address] Kin Mcdonald MA Social History Tobacco Use Types Packs/Day Years Used Date Smoking Tobacco: Never Assessed Comments Unknown Sex and Gender Information Value Date Recorded Sex Assigned at Not on file Legal Sex Female 3:28 PM CDT Gender Identity Not on file Sexual Orientation Not on file documented as of this encounter Plan of Treatment Not on file documented as of this encounter Procedures Procedure Name Priority Date/Time Associated Diagnosis Comments CBC (OUTSIDE LAB) Routine 08/10/2018 FREE T3 Routine 08/10/2018 COMPREHENSIVE METABOLIC PANEL Routine 08/10/2018 LIPID PANEL Routine 08/10/2018 THYROXINE, FREE (FT4) Routine 08/10/2018 THYROID STIM HORMONE TSH Routine 08/10/2018 documented in this encounter Results * CBC (OUTSIDE LAB) (08/10/2018) WBC 4.5 HGB 12.9 HCT 37.4 PLT 276 08/10/2018 [facility] Abstract LAB-OUTSIDE/ABSTRACTED Final Result * FREE T3 (08/10/2018) Pathologist [facility] FREE T3 3.6 08/10/2018 us Doc [facility] Abstract LABORATORY Final Result * THYROXINE, FREE (FT4) (08/10/2018) Pathologist [facility] FREE T4 1.3 08/10/2018 us Doc [facility] Abstract LABORATORY Final Result * THYROID STIM HORMONE, TSH (08/10/2018) Pathologist [facility] TSH 0.10 08/10/2018 us Doc [facility] Abstract LABORATORY Final Result * COMPREHENSIVE METABOLIC PANEL (08/10/2018) Pathologist [facility] SODIUM S/P/B 140 POTASSIUM S/P/B 4.1 CO2 26 CHLORIDE S/P/B 106 GLUCOSE 101 mg/dL CALCIUM S/P/B 9.2 BUN 12 CREATININE S/P/B 0.81 0.5 - 1.0 EGFR AFR. AMER. 88 <=90 EGFR NON-AFR. AMER. 76 <=90 ALKALINE PHOSPHATASE S/P/B 75 ALT 24 AST 20 BILIRUBIN TOTAL S/P/B 0.6 ALBUMIN S/P/B 4.5 3.5 - 5.0 TOTAL PROTEIN S/P/B 6.8 GLOBULIN 2.3 08/10/2018 us Doc [facility] Abstract LABORATORY Edited Resul t - Final * LIPID PANEL (08/10/2018) Pathologist [facility] CHOLESTEROL 131 HDL 75 TRIGLYCERIDES 48 NON HDL CHOLESTEROL 56 LDL (CALCULATED) 42 08/10/2018 us Doc [facility] Abstract LABORATORY Final Result documented in this encounter Visit Diagnoses Not on filedocumented in this encounter Care Teams Stage Settings Painter Relationship Specialty Start Date End Date Beth Murdock DO PCP - General FAMILY PRACTICE 04/16/21 01/22/24 Mag Zamora PA [address] [place] [id number] PCP - General PHYSICIAN SOFTWARE BUSINESS ANALYST 01/23/24 documented as of this encounter
--- OUTSIDE RECORDS SUMMARY | 2024-10-01 11:37 | XMS_ITS | Clinical Summary ---
Author Organization [facility] Address [address] [place] [address] Care Team Providers Care Pony Ride Operator Name Role Phone Beth Murdock DO Primary Care Provider [phone] Source Comments [facility],non-owned Affiliates and Associated Physician Practices is amultiple site organization consisting of ambulatory clinics and hospital sitesin [place], [place], [place] and [place]. This disclosure is being madepursuant to the Care Everywhere program and may not contain all information available regarding this patient. Last updated 18.[facility] Allergies Active Allergy Reactions Criticality Noted Date Comments Jose Alfredo Inhibitors Swelling Low 05/06/2013 Bisoprolol Other Low 10/24/2014 Dropped pressure too quickly Moxifloxacin Hcl In Nacl Other Low 08/24/2012 Mouth sores Medications * Be aware that medications may not be up to date on this document. Alwaysverify current medications with the patient. Medication Sig Dispensed Refills Start Date End Date Status RABEprazole EC (ACIPHEX) 20 MG tablet Take 20 mg by mouth BID. 60 tablet 5 04/14/2017 Active Active Problems Problem Noted Date Diagnosed Date Irritable bowel syndrome without diarrhea 2014 Overview (09/29/2017): 04/01/13: Normal CBC, hemoglobin 12.8 Normal CMPTSH 2.9 CRP 2.2 Giardia Ag neg Calprotectin normal 05/16/2011 colonoscopy: normal Gastro-esophageal reflux disease without esophag itis 04/03/2015 Right lower quadrant pain 04/03/2015 Hypothyroidism 01/10/2012 Immunizations Name Administration Dates Next Due INFLUENZA VACCINE, TRIV. (AF LURIA, FLUZONE TRIVALENT; 6MO+) (IIV3) 01/10/2012 Family History Medical History Relation Name Comments None Known Brother Status: Alive None Known Daughter 1 Status: Alive None Known Daughter 2 Status: Alive Other Father malignant blood d4; Status: COPD - Chronic Obstructive Pulmonary Disease Maternal Grandmother Female organ cancer . Parkinson's Disease Mother Status: Alive Cancer Paternal Grandfather Lung ca ncer Cancer Paternal Grandmother Female organ cancer Diabetes Son Status: Alive None Known Son Status: Alive Relation Name Status Comments Brother Daughter 1 Daughter 2 Father Maternal Grandmother Mother Paternal Grandfather Paternal Grandmother Son Social History Tobacco Use Types Packs/Day Years Used Date Smoking Tobacco: Former Cigarettes Q uit: 09/16/2002 Smokeless Tobacco: Never Alcohol Use Standard Drinks/Week Comments Yes 0 (1 standard drink = 0.6 oz pur e alcohol) Sex and Gender Information Value Date Recorded Sex Assigned at Not on file Gender Identity Not on file Sexual Orientation Not on file Last Filed Vital Signs Vital Sign Reading Time Taken Comments Blood Pressure 137/87 04/08/2016 12:43 PM CDT Pulse 72 04/08/2016 12:43 PM CDT Temperature 36.7 C (98 F) 04/08/2016 12:43 PM CDT Respiratory Rate 16 04/08/2016 12:43 PM CDT Oxygen Saturation 100% 05/06/2013 1:54 PM SALES ADVISOR Inhaled Oxygen Concentration - - Weight 78.1 kg (172 lb 1.6 oz) 04/08/2016 12:43 PM CDT Height 165.1 cm (5' 5 ) 04/08/2016 12:43 PM CDT Body Mass Index 28.64 04/08/2016 12:43 PM CDT Plan of Treatment Health Maintenance Due Date Last Done Comments BONE DENSITY TESTING 1955 COLOGUARD (AGES 45-75) - COL ON CA SCREENING 1953 COLON MONITORING 1953 COLONOSCOPY - COLON CA SCREENING 1953 CT COLONOGRAPHY - COLON CA SCREENING 1953 Colorectal Cancer Screening 1953 FIT - COLON CA SCREENING 1953 FLEX SIG - COLON CA SCREENING 1953 LIPID TESTING 1953 MAMMOGRAM 1955 MEDICARE AWV 12 MONTHS 1953 DTAP/TDAP/TD VACCINES (1 - Tdap) 1972 PNEUMOCOCCAL VACCINE 50+ (1 of 1 - PCV) 2003 ZOSTER VACCINE (1 of 2) 2003 COVID-19 VACCINE (1 - 2023-2 5 season) 2024 INFLUENZA VACCINE (#1) 2024 01/10/2012 DEPRESSION SCREENING 06/30/2024 Respiratory Syncytial Virus (RSV) Vaccine Pt: or over 60 yrs (1 - 1-dose 75+ series) 2028 HEPATITIS C SCREENING Completed 12/01/2012 HEPATITIS B VACCINE Aged Out No longe r eligible based on patient's age to complete this topic HIB VACCINE Aged Out No longer eligi ble based on patient's age to complete this topic HPV VACCINE Aged Out No longer eligi ble based on patient's age to complete this topic MENINGOCOCCAL (Group B) VACC INE SHARED DECISION-MAKING Aged Out No longer eligibl e based on patient's age to complete this topic MENINGOCOCCAL GROUPS A/C/Y/W VACCINE Aged Out No longer eligible b ased on patient's age to complete this topic Procedures Procedure Name Priority Date/Time Associated Diagnosis Comments HEPATITIS C ANTIBODY Routine 12/01/2012 4:36 PM CDT from Last 3 Months or Most Recently Relevant to Health Maintenance Results * HEPATITIS C ANTIBODY (12/01/2012 4:36 PM CDT) Hepatitis C Virus Antibody <0.1 0.0 - 0.9 s/co ratio [facility] ([place]) Comment: Negative: < 0.8 Indeterminate 0.8 - 0.9 Positive: > 0.9 In order to reduce the incidence of a false positive result, the CDC recommends that all s/co ratios between 1.0 and 10.9 be confirmed by a more specific supplemental or PCR testing. [facility] offers HCV Ab w/Reflex to Verification test #[id number]. 12/01/2012 4:36 PM CDT 12/01/2012 6:45 PM CDT Narrative [facility] ([place]) - 12/03/2012 3:16 PM CDT Performed at: [address] [place], [place] [id number] Printed Circuit Photographer: Toby Weber PhD, Phone: [phone] Moriah Watts MD LAB - CHEM ISTRY ORDERABLES [facility]) from Last 3 Months or Most Recently Relevant to Health Maintenance Care Teams Pony Ride Operator Relationship Specialty Start Date End Date Beth Murdock DO [address] [place] [phone] PCP - General Family Medicine 09/29/17
--- OUTSIDE RECORDS SUMMARY | 2024-10-01 11:37 | XMS_ITS | Encounter Summary ---
Author Organization [facility] Address [address] [place] [address] Care Team Providers Care Towboat Engineer Name Role Phone Beth Murdock DO Primary Care Provider [phone] Mag Zamora Primary Care Provider [phone] Encounter Details Date Type Department Care Team (Late st Contact Info) Description 04/07/2017 Abstract [facility] CONVERSION [address] [place], [place] [id number] , Generic ConversionMD Social History Tobacco Use [...] on filedocumented in this encounter Care Teams Towboat Engineer Relationship Specialty Start Date End Date Beth Murdock DO PCP - General FAMILY PRACTICE 04/16/21 01/22/24 Mag Zamora PA [address] [place] [id number] PCP - General PHYSICIAN SECURITY ASSISTANT 01/23/24 documented as of this encounter
--- OUTSIDE RECORDS SUMMARY | 2024-10-01 11:37 | XMS_ITS | Clinical Summary ---
Author Organization [facility] Address [address] [place] [address] Phone Care Team Providers Care Reading Coach Name Role Phone Mag Zamora I PAC Primary Care Provider [phone]- [phone] Av Berg MD Unavailable [phone] Allergies Active Allergy Reactions Criticality Noted Date Comments Jose Alfredo Inhibitors Swelling Low 05/06/2013 Bisoprolol Other (see Comments) Low 10/24/2014 Dropped pressure too quickly Latex Hives 04/22/2024 Moxifloxacin Other (see Comments),Hives Low 04/16/2021 Reaction: Fatigue, Sulfa Antibiotics Other (see Comments) 04/22/20 Trimethoprim Other (see Comments) 04/22/2024 Medications liothyronine (CYTOMEL) 5 MCG Tablet Take 5 mcg by mouth 2 times daily. Active RABEprazole (ACIPHEX) 20 MG Tablet Delayed Response Take 20 mg by mouth 2 times daily. 2 Active busPIRone (BUSPAR) 15 MG Tablet 15 mg 2 times daily. Active levothyroxine (Synthroid) 75 MCG Tablet 75 mcg daily. 8 Active cetirizine (ZyrTEC) 10 MG Tablet Take 10 mg by mouth daily. Active loperamide (IMODIUM) 2 MG Capsule Take 2 mg by mouth 2 times daily. Active ALPRAZolam (XANAX) 0.25 MG Tablet TAKE 1 TABLET BY MOUTH TWICE A DAY FOR ANXIETY Active metoprolol Succinate (TOPROL-XL) 25 MG TABLET SR 24 HR Take 25 mg by mouth 2 times daily. 1/2 tablet 2 times daily 4 Active rivaroxaban (XARELTO) 10 MG TabletIndications: History of Thromboembolic Disease Take 1 Tablet by mouth daily for 90 days. Indications: History of Disease involving a Thrombosis or an Embolism 30 Tablet 2 5 025 Active Active Problems No known active problems Encounters Date Type Department Care Team Description 08/17/2024 Telephone [facility] [address] [place] [address] Av Berg MD 07/29/2024 12:00 PM SYSTEMS ENGINEER Lab [facility] [address] [facility] [address] [address] Nurse, [facility] Pulmonary embolism, other, unspecified chronicity, unspecified whether acute cor pulmonale present (HCC) (Primary Dx) 07/29/2024 11:30 AM SYSTEMS ENGINEER Office Visit [facility] [address] [facility] [address] [address] Annette Harris, HATCHERY EMPLOYEE, SENIOR LINUX UNIX ADMINISTRATOR Pulmonary embolism, other, unspecified chronicity, unspecified whether acute cor pulmonale present (HCC) (Primary Dx) 07/29/2024 Travel from Last 3 Months Family History Medical History Relation Name Comments Diabetes Child 3 Parkinsonism Mother Relation Name Status Comments Brother Alive Child 1 Alive Child 2 Alive Child 3 Alive Child 4 Alive Father Mother Sister 1 Alive Sister 2 Alive Social History Tobacco Use Types Packs/Day Years Used Date Smoking Tobacco: Former Cigarettes Smokeless Tobacco: Never Tobacco Cessation:Counseling Given: Not Answered Alcohol Use Standard Drinks/Week Comments Yes 0 (1 standard drink = 0.6 oz pur e alcohol) 2 x's per year Comments Unknown Sex and Gender Information Value Date Recorded Sex Assigned at Female 04/23/2024 11:35 AM CDT Legal Sex Female 2:36 PM CDT Gender Identity Female 04/23/2024 11:35 AM CDT Sexual Orientation Not on file Last Filed Vital Signs Vital Sign Reading Time Taken Comments Blood Pressure 130/64 07/29/2024 11:43 AM SYSTEMS ENGINEER Pulse 65 07/29/2024 11:43 AM SYSTEMS ENGINEER Temperature 36.9 C (98.5 F) 07/29/2024 11:43 AM SYSTEMS ENGINEER Respiratory Rate 18 04/22/2024 2:09 PM CDT Oxygen Saturation 99% 07/29/2024 11:43 AM SYSTEMS ENGINEER Inhaled Oxygen Concentration - - Weight 80.7 kg (178 lb) 07/29/2024 11:43 AM SYSTEMS ENGINEER Height 162.6 cm (5' 4 ) 07/29/2024 11:43 AM SYSTEMS ENGINEER Body Mass Index 30.55 07/29/2024 11:43 AM SYSTEMS ENGINEER Plan of Treatment Upcoming Encounters Date Type Department Care Team (Late st Contact Info) Description 01/27/2025 11:00 AM CDT Office Visit [facility] [address] [address] Av Berg MD [address] [place] [address] Health Maintenance Due Date Last Done Comments Colonoscopy 1998 Colorectal Cancer Screening 1998 Cologuard 2003 Immunochemical Fecal Occult Blood 2003 Pneumococcal Immunization (5 0+ years) (1 of 1 - PCV) 2003 Zoster Immunization (1 of 2) 2003 Influenza Immunization (#1) 2024 01/10/2012 SARS-COV-2 Immunization ( - season) 2024 DEXA Bone Density 05/09/2024 05/09/2022 Mammogram 01/22/2025 01/23/2024, 01/23/2024, 05/09/2022 Respiratory Syncytial Virus (RSV) Immunization (Adult) (1 - 1-dose 75+ series) 2028 Hepatitis C Virus (HCV) Screening Completed 12/01/2012 TdaP Immunization Completed 12/27/2014 Hepatitis B Immunization Aged Out No longer eligible based on patient's age to complete this topic Meningococcal Immunization (ACWY) Aged Out No longer eligible b ased on patient's age to complete this topic Rotavirus Immunization Aged Out No lo nger eligible based on patient's age to complete this topic Procedures Procedure Name Priority Date/Time Associated Diagnosis Comments CBC WITH AUTO DIFF OH Routine 07/29/2024 1:04 PM SYSTEMS ENGINEER CMP (COMPREHENSIVE METABOLIC PANEL) Routine 07/29/2024 1:04 PM SYSTEMS ENGINEER Pulmonary embolism, other, unspecified chronicity, unspecified whether acute cor pulmonale present (HCC) from Last 3 Months Results * (ABNORMAL) CBC WITH AUTO DIFF OH (07/29/2024 1:04 PM SYSTEMS ENGINEER) WBC 6.7 4.0 - 10.0 10*3/uL CANCER DIRECTOR RECORDS MANAGEMENT [facility] HGB 13.0 11.2 - 15.7 g/dL CANCER DIRECTOR RECORDS MANAGEMENT [facility] HCT 39.6 34.1 - 44.9 % CANCER DIRECTOR RECORDS MANAGEMENT [facility] PLT 286 163 - 369 10*3/uL CANCER DIRECTOR RECORDS MANAGEMENT [facility] MPV 11.7 9.4 - 12.4 fL [facility] DIRECTOR RECORDS MANAGEMENT [facility] RBC 4.15 3.93 - 5.22 10*6/uL CANCER DIRECTOR RECORDS MANAGEMENT [facility] MCV 95 79 - 95 fL CANCER DIRECTOR RECORDS MANAGEMENT [facility] MCH 31.3 25.6 - 32.2 pg CANCER DIRECTOR RECORDS MANAGEMENT [facility] MCHC 32.8 32.2 - 36.5 g/dL CANCER DIRECTOR RECORDS MANAGEMENT [facility] RDW 12.6 11.6 - 14.4 % CANCER DIRECTOR RECORDS MANAGEMENT [facility] Neutrophils % 67.3(H) 36.0 - 66.0 % CANCER DIRECTOR RECORDS MANAGEMENT [facility] Lymphocytes % 16.5(L) 19.0 - 40.0 % CANCER DIRECTOR RECORDS MANAGEMENT [facility] Monocytes % 11.6 4.1 - 12.1 % CANCER DIRECTOR RECORDS MANAGEMENT [facility] Eosinophils % 3.0 0.0 - 3.5 % CANCER DIRECTOR RECORDS MANAGEMENT [facility] Basophils % 0.6 0.0 - 1.0 % CANCER DIRECTOR RECORDS MANAGEMENT [facility] Absolute Neutrophils 4.5 1.4 - 6.6 10*3/uL CANCER DIRECTOR RECORDS MANAGEMENT [facility] Absolute Lymphocytes 1.1 0.8 - 4.0 10*3/uL CANCER DIRECTOR RECORDS MANAGEMENT [facility] Absolute Monocytes 0.8 0.2 - 1.2 10*3/uL CANCER DIRECTOR RECORDS MANAGEMENT [facility] Absolute Eosinophils 0.2 0.0 - 0.4 10*3/uL CANCER DIRECTOR RECORDS MANAGEMENT [facility] Absolute Basophils 0.0 0.0 - 0.1 10*3/uL CANCER DIRECTOR RECORDS MANAGEMENT [facility] 07/29/2024 1:04 PM SYSTEMS ENGINEER Annette Harris HATCHERY EMPLOYEE, SENIOR LINUX UNIX ADMINISTRATOR LAB SEND OUTS Final Result [facility] DIRECTOR RECORDS MANAGEMENT [facility] [address] [place] [address], * CMP (COMPREHENSIVE METABOLIC PANEL) (07/29/2024 1:04 PM SYSTEMS ENGINEER) Glucose 90 70 - 105 mg/dL [facility] Blood Urea Nitrogen 16 7 - 25 mg/dL [facility] Creatinine 0.9 0.6 - 1.2 mg/dL [facility] Sodium 138 136 - 145 mEq/L [facility] Potassium 4.1 3.5 - 5.1 mEq/L [facility] Chloride 103 98 - 107 mEq/L [facility] Bicarbonate 27 21 - 31 mEq/L [facility] Total Bilirubin 0.5 0.3 - 1.0 mg/dL [facility] Alk. Phosphatase 77 34 - 104 U/L [facility] Aspartate Aminotransferase 16 13 - 39 U/L [facility] Alanine Aminotransferase 14 7 - 52 U/L [facility] Total Protein 6.7 6.4 - 8.9 g/dL [facility] Albumin 4.3 3.5 - 5.7 g/dL [facility] Calcium 9.5 8.6 - 10.3 mg/dL [facility] Anion Gap 12.1 7.0 - 15.0 mEq/L [facility] Globulin 2.4 2.0 - 3.5 g/dL [facility] DIRECTOR RECORDS MANAGEMENT [facility] EGFR 68 >60 ml/min/1. 73m2 [facility] DIRECTOR RECORDS MANAGEMENT [facility] Comment: This eGFR is calculated using 2020 CKD-EPI Creatinine equation without race modifier based on the NKF-ASN task force recommendations Blood 07/29/2024 1:04 PM SYSTEMS ENGINEER Narrative CANCER DIRECTOR RECORDS MANAGEMENT [facility] - 07/29/2024 1:44 PM SYSTEMS ENGINEER Release to patient->Immediate IS THE PATIENT REQUIRED TO BE FASTING FOR 8 HOURS?->No us Annette Harris APRN, SENIOR LINUX UNIX ADMINISTRATOR CHEMISTRY ORDERABLES Final Result CANCER DIRECTOR RECORDS MANAGEMENT [facility] [address] [place] [address], from Last 3 Months Insurance MEDICARE [facility] Care Teams Reading Coach Relationship Specialty Start Date End Date Mag Zamora PAC [address] [place] [address] PCP - General Physician Test Data Developer 04/12/24 Av Berg MD [address] [place] [id number] Consulting Physician Oncology 04/12/24
--- OUTSIDE RECORDS SUMMARY | 2024-10-01 11:37 | XMS_ITS | Encounter Summary ---
Author Organization [facility] Address [address] [place] [address] Care Team Providers Care Centrifugal Casting Machine Operator Name Role Phone Jerman Brooks MD Primary Care Provider [phone] Encounter Details Date Type Department Care Team (Latest Contact Info) Description 02/04/2003 Outpatient Historical HIS PATIENT IN A BED Sudhir Hammer MD [address] [place] [id number] GB CHOLESTEROLOSIS (Primary Dx) Social History Tobacco Use Types Packs/Day Years Used Date Smoking Tobacco: Never Assessed Comments Unknown Sex and Gender Information Value Date Recorded Sex Assigned at Not on file Legal Sex Female 5:10 AM DIRECTOR OF DESIGN Gender Identity Not on file Sexual Orientation Not on file documented as of this encounter Plan of Treatment Not on file documented as of this encounter Visit Diagnoses Diagnosis Cholesterolosis of gallbladder- Primary documented in this encounter Care Teams Centrifugal Casting Machine Operator Relationship Specialty [place] [address] [address] PCP - General 02/03/03 documented as of this encounter
--- OUTSIDE RECORDS SUMMARY | 2024-10-01 11:37 | XMS_ITS | Referral Summary ---
Author Organization [facility] Address [address] [place] [address] Care Team Providers Care Clinical Resource Nurse Name Role Phone Reynaldo Fox MD Unavailable [phone] Mag Zamora Primary Care Provider [phone] Encounters Date Type Department Care Team Description 09/23/[address] [facility] Surgery [address] [place] [address] Debra Anderson RMA 09/23/[address] [facility] Surgery [address] [place] [address] Talib Omalley MD Lung nodule (Primary Dx) from Last 3 Months Allergies Active Allergy Reactions Criticality Noted Date [...] 07/31/2023 multivitamin tablet tablet Take according to czvh-izt-olbnysu package directions 0 0 8 Active calcium-vitamin D3-vitamin K (VIACTIV) 500-100-40 mg-unit-mcg tablet,chewable Take according to vdvw-jli-tyampke package directions 0 0 8 Active ascorbic [...] Overview (10/04/2016): HYPOTHYROIDISM NOS Muscle pain 03/29/2013 Social History Tobacco Use Types Packs/Day Years Used Date Smoking Tobacco: Former Cigarettes 1 35 1 968 - 2003 Tobacco Cessation:Counseling Given: Not Answered Alcohol Use [...] on file Legal Sex Female 12:36 AM MANAGER SIX SIGMA Gender Identity Female 10/05/2019 9:15 AM CDT Sexual Orientation Straight 10/05/2019 9: 15 AM CDT Last Filed Vital Signs Vital Sign Reading [...] cm (5' 4 ) 07/31/2023 10:53 AM MANAGER SIX SIGMA Body Mass Index 30.21 07/31/2023 10:53 AM MANAGER SIX SIGMA Plan of Treatment Not on file Insurance MEDICARE [facility] MEDICARE [facility] OPTIONS PPO [facility] HMO/PPO Address: [address] [address] [place] [address] Care Teams Clinical Resource Nurse Relationship Specialty Start Date End Date Mag Zamora PA [address] [place] [address] PCP - General Physician Glove Stitcher 01/15/24 Reynaldo Fox MD [address] [place], [place] [address] Consulting Physician Gastroenterology 10/03/23
--- OUTSIDE RECORDS SUMMARY | 2024-10-01 11:37 | XMS_ITS | Encounter Summary ---
Author Organization [facility] Address [address] [place] [address] Care Team Providers Care Pcat Instructor Name Role Phone Jerman Brooks MD Primary Care Provider [phone] Encounter Details Date Type Department Care Team (Late st Contact Info) Description 02/04/2003 Outpatient Historical [facility] Support Serv. (Adt Cardiology[facility]) [address] [place] [address] Elías Adrian MD NO ADDRESS ON FILE Social History Tobacco Use Types Packs/Day Years Used Date Smoking Tobacco: Never Assessed Comments Unknown Sex and Gender Information Value Date Recorded Sex Assigned at Not on file Legal Sex Female 5:10 AM VETERINARY PRACTITIONER Gender Identity Not on file Sexual Orientation Not on file documented as of this encounter Plan of Treatment Not on file documented as of this encounter Visit Diagnoses Not on filedocumented in this encounter Care Teams Pcat Instructor Relationship Specialty [place] [address] [address] PCP - General 02/03/03 documented as of this encounter
--- OUTSIDE RECORDS SUMMARY | 2024-10-01 11:37 | XMS_ITS | Clinical Summary ---
Author Organization [facility] Address [address] [place] [address] Care Team Providers Care Director Of Estate Name Role Phone Jaja Zamora Primary Care Provider [phone] Allergies Active Allergy Reactions Criticality Noted Date Comments Jose Alfredo Inhibitors Swelling 04/16/2021 Moxifloxacin Hives 04/16/2021 Medications liothyronine 5 MCG Tab Take 1 tablet by mouth 2 (two) times a day. Active RABEprazole EC 20 MG tablet Take 20 mg by mouth daily. Active busPIRone 15 MG tablet Take 15 mg by mouth 2 (two) times daily. Active levothyroxine 88 MCG tablet Take 88 mcg by mouth every morning. Active cetirizine 10 MG tablet Take 10 mg by mouth daily. Active cloNIDine 0.1 MG tablet Take 0.1 mg by mouth 3 (three) times daily. Active loperamide 2 MG capsule Take 2 mg by mouth 4 (four) times daily as needed for Diarrhea. Active ALPRAZolam 0.25 MG tablet Take 0.25 mg by mouth 2 (two) times daily. Active Family History Medical History Relation Comments Cancer Father Breast Cancer Neg Hx Relation Status Comments Father Social History Tobacco Use Types Packs/Day Years Used Date Smoking Tobacco: Former Cigarettes Q uit: 2002 Smokeless Tobacco: Never Alcohol Use Standard Drinks/Week Comments Not Currently 0 (1 standard drink = 0.6 oz pur e alcohol) Comments No Sex and Gender Information Value Date Recorded Sex Assigned at Not on file Legal Sex Female 3:28 PM CDT Gender Identity Not on file Sexual Orientation Not on file Last Filed Vital Signs Vital Sign Reading Time Taken Comments Blood Pressure 194/82 04/16/2021 5:26 PM CDT Pulse 80 04/16/2021 5:26 PM CDT Temperature 36.8 C (98.3 F) 04/16/2021 5:26 PM CDT Respiratory Rate 17 04/16/2021 5:26 PM CDT Oxygen Saturation 98% 04/16/2021 5:26 PM CDT Inhaled Oxygen Concentration - - Weight 77.1 kg (170 lb) 04/16/2021 5:26 PM CDT Height 165.1 cm (5' 5 ) 08/24/2013 11:39 AM MORTICIAN SUPPLIES SALES REPRESENTATIVE Body Mass Index 28.29 08/24/2013 11:39 AM MORTICIAN SUPPLIES SALES REPRESENTATIVE Plan of Treatment Health Maintenance Due Date Last Done Comments Colorectal Cancer Screening Colonoscopy (10 Years) 1953 DTaP, Tdap and Td Vaccines ( 1 - Tdap) 1972 Zoster Vaccines (1 of 2) 2003 Annual Medicare Wellness Visit 2018 Pneumococcal Vaccine: 65+ Years (1 of 1 - PCV) 2018 COVID-19 Vaccine ( - 2023-2 5 season) 2024 Mammogram Screening 01/22/2026 01/23/2024, 05/09/2022 RSV Immunization or 60+ Years (1 - 1-dose 75+ series) 2028 Hepatitis C Completed 12/01/2012 Dexa Scan (General) Completed 05/09/2022 Meningococcal B Vaccine Aged Out No l onger eligible based on patient's age to complete this topic Meningococcal Vaccine Aged Out No carlos michelle eligible based on patient's age to complete this topic RSV Immunizations Under 20 Months Aged Out No longer eligible b ased on patient's age to complete this topic Procedures Procedure Name Priority Date/Time Associated Diagnosis Comments MG SCREENING W JUNIOR SHANNEN DIGI Routine 01/23/2024 2:00 PM CDT Encounter for screening mammogram for malignant neoplasm of breast BONE DENSITY/DEXA Routine 05/09/2022 3:1 1 PM MORTICIAN SUPPLIES SALES REPRESENTATIVE Menopause COLONOSCOPY Routine MORTICIAN SUPPLIES SALES REPRESENTATIVE from Last 3 Months or Most Recently Relevant to Health Maintenance Results * MG SCREENING W JUNIOR SHANNEN DIGI (01/23/2024 2:00 PM CDT) Anatomical Region Laterality Modality Breast Bilateral Mammography 01/26/2024 1:31 PM CDT Impressions 01/26/2024 1:32 PM CDT =====IMPRESSION:===== No mammographic findings suggestive of malignancy ASSESSMENT: ACR BI-RADS 2 - BENIGN FINDING(S) Recommendation: 1: Routine Screening Bilateral COMMENTS: Ordered By: JAJA ZAMORA Interpreted By: Reynaldo Phelan MD, 01/26/2024 1:31 PM Narrative 01/26/2024 1:32 PM CDT EXAMINATION: Digital bilateral screening mammogram with 3-D tomosynthesis EXAM DATE/TIME: 01/23/2024 12:58 PM REASON FOR EXAM: Screening COMPARISON: Priors including April 2022, December 2017 TECHNIQUE: Digital screening mammography of both breasts was performed in addition to 3-D Tomosynthesis technique. This study was read with the assistance of a computer-aided detection system. TISSUE DENSITY: There are scattered areas of fibroglandular density. FINDINGS: No suspicious masses, malignant appearing calcifications, skin thickening or other abnormalities are present. No significant change from the prior exam. Jaja HALE MAMMO Final Result * BONE DENSITY/DEXA (05/09/2022 3:11 PM MORTICIAN SUPPLIES SALES REPRESENTATIVE) Anatomical Region Laterality Modality Bone Bone Density 05/09/2022 3:11 PM MORTICIAN SUPPLIES SALES REPRESENTATIVE Narrative 05/09/2022 3:12 PM MORTICIAN SUPPLIES SALES REPRESENTATIVE IMAGING STUDIES: BONE DENSITY/DEXA DATE: 05/09/2022 2:48 PM CLINICAL HISTORY: Menopause . 66-year-old female with menopause at age 30.. On calcium therapy. FINDINGS: LUMBAR SPINE L2-L4: BMD: 1.131 g/sq cm T-SCORE: 0.5 WHO CLASSIFICATION: Normal young adult range FRACTURE RISK: Negligible LEFT FEMORAL NECK: BMD: 0.809 T-SCORE: -0.4 WHO CLASSIFICATION: Normal young adult range FRACTURE RISK: Very low Recommendation. Continuation of calcium replacement therapy with repeat imaging in 2 years Ordered By: ALISA SIMENTAL Interpreted By: Tracy Calles, 05/09/2022 3:11 PM Procedure Note Ghanshyam Calles MD - 05/09/2022 IMAGING STUDIES: BONE DENSITY/DEXA DATE: 05/09/2022 2:48 PM CLINICAL HISTORY: Menopause . 66-year-old female withmenopause at age 30.. On calcium therapy. FINDINGS: LUMBAR SPINE L2-L4: BMD: 1.131 g/sq cm T-SCORE: 0.5 WHO CLASSIFICATION: Normal young adult range FRACTURE RISK: Negligible LEFT FEMORAL NECK: BMD: 0.809 T-SCORE: -0.4 WHO CLASSIFICATION: Normal young adult range FRACTURE RISK: Very low Recommendation. Continuation of calcium replacement therapy with repeatimaging in 2 years Ordered By: ALISA SIMENTAL Interpreted By: Tracy Calles, 05/09/2022 3:11 PM us Alisa Simental MD DEXA Final Result * Colonoscopy ( MORTICIAN SUPPLIES SALES REPRESENTATIVE) Narrative [facility] TO EPIC CONVERSION - MORTICIAN SUPPLIES SALES REPRESENTATIVE Documented hx of procedure Procedure Note Tomer Jarquin MD - 05/03/2018 Documented hx of procedure us Generic Ammon Jarquin MD GI PROCEDURE ORDERABLES Final Result [facility] TO EPIC CONVERSION from Last 3 Months or Most Recently Relevant to Health Maintenance Insurance MEDICARE [facility] Care Teams Director Of Estate Relationship Specialty Start Date End Date Jaja Zamora PA [address] [place] [id number] PCP - General PHYSICIAN SANITATION MANAGER 01/23/24
--- OUTSIDE RECORDS SUMMARY | 2024-10-01 11:37 | XMS_ITS | Encounter Summary ---
Author Organization [facility] Address [address] [place] [address] Care Team Providers Care Grand Scribe Name Role Phone Jerman Brooks MD Primary Care Provider [phone]- [phone] Encounter Details Date Type Department Care Team (Latest Contact Info) Description 04/26/2003 Outpatient Historical HIS [facility] SOFIE Durán, Elías Galeana MD [address] [facility] [address] [place] [phone] NONTOX MULTINODUL GOITER (Primary Dx) Social History Tobacco Use Types Packs/Day Years Used Date Smoking Tobacco: Never Assessed Comments Unknown Sex and Gender Information Value Date Recorded Sex Assigned at Not on file Legal Sex Female 5:10 AM ASSISTANT PURCHASING MANAGER Gender Identity Not on file Sexual Orientation Not on file documented as of this encounter Plan of Treatment Not on file documented as of this encounter Visit Diagnoses Diagnosis Nontoxic multinodular goiter- Primary documented in this encounter Care Teams Grand Scribe Relationship Specialty [place] [address] [address] PCP - General 02/03/03 documented as of this encounter
--- OUTSIDE RECORDS SUMMARY | 2024-10-01 11:37 | XMS_ITS | Encounter Summary ---
Author Organization [facility] Address [address] [place] [address] Care Team Providers Care Radio Television Technical Director Name Role Phone Jerman Brooks MD Primary Care Provider [phone]- [phone] Encounter Details Date Type Department Care Team (Late st Contact Info) Description 02/03/2003 Outpatient Historical HIS [facility] Sudhir Hammer MD [address] [place] [address] ABDOMINAL PAIN UNSPEC SITE (Primary Dx) Social History Tobacco Use Types Packs/Day Years Used Date Smoking Tobacco: Never Assessed Comments Unknown Sex and Gender Information Value Date Recorded Sex Assigned at Not on file Legal Sex Female 5:10 AM INSIGHT LEADER Gender Identity Not on file Sexual Orientation Not on file documented as of this encounter Plan of Treatment Not on file documented as of this encounter Visit Diagnoses Diagnosis Abdominal pain, unspecified site- Primary documented in this encounter Care Teams Radio Television Technical Director Relationship Specialty [place] [address] [facility] [address] [address] PCP - General 02/03/03 documented as of this encounter
== END 2024-10-01 11:04 | disposition home or self-care (01) ==
PROVIDERS: PCP Physician Assistant Medical; Visit Provider Thoracic Surgery (Cardiothoracic Vascular Surgery)
DX: R91.1 Solitary pulmonary nodule (principal)
CPT/HCPCS: 71260; Q9967